=== PATIENT | female | born 1965 | race Hispanic/Latino ===

== ENCOUNTER 2017-07-11 16:52 | Inpatient (IN) | payer SELFPAY ==
[2017-07-11] MEDS ORDERED: Nitroglycerin 2% Ointment 1 INCH/1 GM Packet ONE (17:37)
[2017-07-11 17:39] LABS: #Eosinphils 0.2 thou/uL (0.0-0.7); #Monocytes 0.5 thou/uL (0.11-0.59); #Neutrophils 7.2 thou/uL (1.40-6.50); %Basophils 0.1 % (0.0-1.0); %Eosinophils 1.5 % (0.0-10.0); %Lymphocytes 27.6 % (21.0-51.0); %Monocytes 4.8 % (0.0-10.0); %Neutrophils 66.1 % (42.0-75.0); Hemoglobin 15.8 g/dL (12.0-16.0); Mean Corpuscular HGB CONC 34.2 g/dL (32.0-36.0); Mean Corpuscular Hemoglobin 29.7 pg (27.0-31.0); Platelet Count 281 thou/uL (130-400); RBC Distribution Width 12.2 % (11.5-14.5); Red Blood Cell (RBC) Count 5.31 mill/uL (4.20-5.40)
[2017-07-11 17:59] LABS: ALT (SGPT) 158 U/L (8-55); AST (SGOT) 116 U/L (5-34); Albumin 4.1 g/dL (3.5-5.0); Alkaline Phosphatase 115 U/L (40-150); Anion Gap 13 mmol/L (10-20); BUN (Urea Nitrogen) 9 mg/dL (9.8-20.1); Bilirubin, Total 0.7 mg/dL (0.2-1.2); CK (CPK) 114 U/L (29-168); Calc. Creatinine Clearance 0 mL/min (70-130); Calcium 9.7 mg/dL (7.8-10.44); Carbon Dioxide 24 mmol/L (22-29); Chloride 103 mmol/L (98-107); Estimated GFR-MDRD Greater than 90; Globulin 4.2 g/dL (2.4-3.5); Glucose 143 mg/dL (70-105); Lipase 16 U/L (8-78); Potassium 3.9 mmol/L (3.5-5.1); Protein, Total 8.3 g/dL (6.0-8.3); Sodium 136 mmol/L (136-145)
[2017-07-11 18:00] LABS: CKMB 1.1 ng/mL (0-6.6); Troponin I 0.011 ng/mL (< 0.028)
--- NOTE | 2017-07-11 18:10 | RAD ---
PORTABLE CHEST: HISTORY: Chest pain. COMPARISON: 06/15/2016 FINDINGS: Heart size and mediastinum are within normal limits. Lungs are clear of infiltrates. No significant bony findings. IMPRESSION: No active intrathoracic disease. POS: [facility]
[2017-07-11] MEDS ORDERED: Acetaminophen 325 MG TAB PO PRN (19:24)
[2017-07-11 20:55] LABS: Troponin I Less than 0.010 ng/mL (< 0.028)
[2017-07-11 21:05] LABS: Cardiac Risk 4.8 (Less than 4.5)
[2017-07-12 00:04] LABS: Troponin I 0.011 ng/mL (< 0.028)
[2017-07-12] MEDS ORDERED: Lisinopril 20 MG TAB PO SCH (09:00)
--- NOTE | 2017-07-12 11:40 | NM ---
NUCLEAR MEDICINE CARDIAC PERFUSION EXAMINATION WITH EJECTION FRACTION: COMPARISON: 03/14/14. HISTORY: A 52-year-old female with chest pain, hypertension, and dyslipidemia. TECHNIQUE: A stress-only nuclear medicine cardiac perfusion examination was performed using 33 mCi of Technetium 99m sestamibi and adenosine FINDINGS: Tomographic images show no perfusion defects with stress. Gated images show normal wall motion with an ejection fraction of 65%. EDV is 98 mL. LHR is 0.3. IMPRESSION: No perfusion defects seen with stress. POS: [facility]
[2017-07-12] MEDS ORDERED: cloNIDine 0.1 MG TAB PO SCH (13:00)
--- NOTE | 2017-07-12 13:51 | STRESS ---
Acquisition Time: 2017-07-12 08:28:30 Total Exercise Time: 00:04:00 Test Indications: CHEST PAIN Medications: Protocol: ADENOSINE Max HR: 112 BPM 66% of Pred: 168 BPM Max BP: 180/064 mmHG Max Work Load: 1.0 METS THE PATIENT WAS INJECTED WITH ADENOSINE. SHE DID DEVELOP CHEST PAIN. THERE WAS NO SIGNIFICANT ST DEPRESSION. AWAIT NUCLEAR IMAGES FOR DEFINITIVE DIAGNOSIS. Confirmed by TANIA CURRY ([id number]), editor school photograph [employer] EATON ([id number]) on 07/12/2017 1:51:30 PM Referred By: MD Neelam WATERS Confirmed By:TANIA CURRY
[2017-07-12] MEDS ORDERED: Communication Order-Pharmacy FS SCH (14:45)
[2017-07-12] MEDS ORDERED: ADENOSINE 60 MG/20 ML VIAL ONE (15:04)
[2017-07-12 16:09] LABS: HBCM Index 0.15 S/CO (0-0.79); HBSAg Index 0.26 S/CO (0-0.99); Hep A IgM AB Non-Reactive (NonReactive); Hep A IgM S/CO 0.15 S/CO (0-0.79); Hep B Surf Ag Non-Reactive S/CO (NonReactive); Hep C IgG Ab Non-Reactive (NonReactive); Hep C Index 0.13 S/CO (0-0.79); Hepatitis B Core IGM Abs Non-Reactive (NonReactive)
--- NOTE | 2017-07-12 17:06 | HP ---
DATE OF ADMISSION: 07/11/2017 CHIEF COMPLAINT: Chest pain. HISTORY OF PRESENT ILLNESS: Ms. Madera is a 52-year-old female with past medical history of diabetes and hypertension, who came with chest pain on and off for the last few days, but worse today . The pain is in the distal sternal area, pressure-like, radiates to the left shoulder. Also, has s hortness of breath and diaphoresis. The patient decided to come to the hospital because it was getti ng worse. In the ER, the patient was evaluated and found to have normal cardiac enzymes. In view of risk factors, the patient is being admitted for further evaluation and management. The patient rece ived aspirin and nitro. PAST MEDICAL HISTORY: 1. Diabetes mellitus. 2. Hypertension. 3. Hyperlipidemia. PAST SURGICAL HISTORY: 1. Status post hysterectomy. 2. Status post . CURRENT MEDICATIONS: Patient is on lisinopril 20 mg daily, glipizide 10 mg b.i.d., metformin 500 mg b.i.d. ALLERGIES: BACTRIM, PNEUMONIA VACCINE. FAMILY HISTORY: Nothing of interest. SOCIAL HISTORY: Patient lives with family. No history of smoking. Drinks alcohol. REVIEW OF SYSTEMS: Unremarkable except for chest pain. PHYSICAL EXAMINATION: GENERAL: The patient is alert, awake, oriented x3. VITAL SIGNS: Temperature 98, pulse 100, respirations 20, blood pressure 120/60. HEENT: Head is normocephalic, atraumatic. Pupils equal and reactive to light. Nasopharynx is pink and moist. NECK: Supple. No JVD. LUNGS: Bilateral air entry, no rales, no rhonchi. CARDIAC: S1 and S2, regular. ABDOMEN: Soft, no distention, no tenderness. No abnormal bowel sounds. CENTRAL NERVOUS SYSTEM: No focal deficit. LABORATORY AND X-RAY FINDINGS: CBC shows WBC 11, hemoglobin 15, hematocrit 46, platelets 281. D-dim er 0.274. Metabolic panel: Sodium 136, potassium 3.9, chloride 103, CO2 of 24, urea nitrogen 9, cre atinine 0.6, glucose 143. CK-MB 1.1, troponin 0.011. Chest x-ray negative. EKG shows normal sinus rhythm, no acute ST-T-wave changes seen. ASSESSMENT: 1. Chest pain, rule out myocardial infarction. 2. Diabetes mellitus. 3. Hypertension. 4. Hyperlipidemia. PLAN: 1. Vital signs q.4 hours with activities. 2. Allergic to sulfa and a pneumonia vaccine. 3. Hep-Lock. 4. Aspirin 81 mg daily. 5. Nitroglycerine p.r.n. 6. Continue home medication. 7. Accu-Chek a.c. and at bedtime. 8. Sliding scale mild with regular insulin. 9. We will obtain a stress test. 10. We would hold metformin.
[2017-07-12] MEDS: Lisinopril 20 MG TAB PO SCH (21:38)
--- NOTE | 2017-07-12 23:44 | CON ---
DATE OF CONSULT: HISTORY OF PRESENT ILLNESS: The patient is a 52-year-old woman who presents for evaluation of chest discomfort. The patient states for the past month she has had midsternal chest discomfort. This occurred primarily with exertion. It usually last approximately 5 minutes and relieved by rest. The patient, however, also report having chest discomfort when she lies down at night, which is relieved by sitting up. She was given Prilosec by her primary physician, but has continued to have discomfort. The patient has multiple cardiac risk factors including hypertension, dyslipidemia, diabetes mellitus, and a very strong family history of coronary artery disease. PAST MEDICAL HISTORY: 1. Hypertension. 2. Diabetes mellitus. PAST SURGICAL HISTORY: Hysterectomy. ALLERGIES: BACTRIM. PNEUMOVAX, SULFA. SOCIAL HISTORY: Nonsmoker. REVIEW OF SYSTEMS: The 10 point system otherwise unremarkable. No history of easy bruising, bleeding, bright red blood per rectum. PHYSICAL EXAMINATION: GENERAL: Obese woman in no acute distress. VITAL SIGNS: Blood pressure is 177/77. NECK: Showed no jugular venous distention, no carotid bruits. LUNGS: Clear to auscultation. HEART: Regular rate and rhythm, normal S1, S2. ABDOMEN: Distended. EXTREMITIES: No edema. SKIN: Warm and dry. VASCULAR: Radial pulses are 2+. Femoral pulses are palpable bilateral. LABORATORY: Sodium 136, potassium 3.9, chloride 103, bicarbonate 24, BUN 9, creatinine 0.67, glucose 143, ALT is 116. Troponin less than 0.01. Her white blood cell count is 11.0, hemoglobin 15.8, hematocrit 46.2, platelets 281. EKG sinus tachycardia, otherwise normal ECG. Stress test revealed normal left ventricular ejection fraction 65%, no evidence of ischemia. IMPRESSION: 1. Chest pain, suggestive of angina. 2. Diabetes. 3. Hypertension. 4. Obesity. 5. Elevated liver function tests. 6. Cardiolite stress test. This patient presents with recurrent chest discomfort. She has continued to have chest pain and has multiple risk factors. I discussed the option of medical therapy versus invasive evaluation to define whether she has significant coronary artery disease. The patient highly prefers to have an invasive evaluation. Risks involved in cardiac catheterization including AL, bleeding, stroke, cardiac arrhythmia, and cardiac . The risks involving stent placement and restenosis have been explained to patient. The patient understands these risks and wishes to proceed. PLAN: 1. Proceed with cardiac catheterization. 2. Evaluation for elevated liver function tests. MTDD
[2017-07-13 05:45] LABS: ALT (SGPT) 166 U/L (8-55); AST (SGOT) 129 U/L (5-34); Albumin 3.9 g/dL (3.5-5.0); Alkaline Phosphatase 114 U/L (40-150); Anion Gap 13 mmol/L (10-20); BUN (Urea Nitrogen) 8 mg/dL (9.8-20.1); Bilirubin, Total 0.9 mg/dL (0.2-1.2); Calc. Creatinine Clearance 146 mL/min (70-130); Calcium 9.5 mg/dL (7.8-10.44); Carbon Dioxide 25 mmol/L (22-29); Chloride 99 mmol/L (98-107); Estimated GFR-MDRD 89; Glucose 263 mg/dL (70-105); Protein, Total 7.9 g/dL (6.0-8.3); Sodium 133 mmol/L (136-145)
[2017-07-13] MEDS: Lisinopril 20 MG TAB PO SCH ×2 (05:57→21:45)
[2017-07-13] MEDS ORDERED: Lidocaine 1% (PF) 30 ML VIAL ONE (06:59)
[2017-07-13] MEDS ORDERED: Verapamil 5 MG/2 ML VIAL ONE (07:00)
[2017-07-13] MEDS ORDERED: Heparin 10,000 UNITS/1 ML VIAL ONE ×2 (07:00)
[2017-07-13] MEDS ORDERED: Nitroglycerin 100MG/250ML BOT 250 ML ONE (07:00)
[2017-07-13] MEDS ORDERED: Midazolam HCl 2 mg/2 ml Vial ONE (07:15)
[2017-07-13] MEDS ORDERED: Fentanyl 100 MCG/2 ML VIAL ONE (07:16)
[2017-07-13] MEDS ORDERED: traMADol HCl 50 MG TAB PO PRN (07:48)
[2017-07-13] MEDS ORDERED: Acetaminophen/Codeine 30-300mg Tablet PO PRN (07:48)
[2017-07-13] MEDS ORDERED: Sodium Chloride 0.9% 200 ML IV SCH (08:00)
[2017-07-13] MEDS ORDERED: Sodium Chloride 0.9% 1,000 ML IV SCH (08:00)
--- NOTE | 2017-07-13 09:32 | ULT ---
ABDOMINAL ULTRASOUND: Date: 07/13/17 HISTORY: Elevated liver enzymes. Distended abdomen. Chest pain. COMPARISON: 07/27/07. TECHNIQUE: Utilizing a multihertz transducer, sonographic imaging of the abdomen is performed in the longitudina l and transverse plane. FINDINGS: The head of the pancreas has a normal echotexture. The remainder of the pancreas is obscured by bowel gas. Visualized IVC and aorta are unremarkable. Heterogeneous echotexture of the liver may be due to hepatic steatosis or hepatocellular disease. Sub sequent evaluation for hepatic masses and intrahepatic biliary dilatation is limited. Right hepatic l obe measures 18.3 cm. No sonographic evidence of cholelithiasis, gallbladder wall thickening, or pericholecystic fluid. Neg ative Patten's sign. Common bile duct diameter is 0.4 cm. Spleen has a normal echotexture measuring 9.7 cm. Bilaterally, no hydronephrosis. Right kidney measures 12.9 x 4.9 x 4.8 cm. Left kidney measures 11.8 x 5.3 x 4.9 cm. There is an echogenic focus in the left renal pelvis measuring 0.4 cm, which may repr esent a nonobstructing calculus. IMPRESSION: Increased echogenicity of the liver which may be due to hepatic steatosis or hepatocellular disease. Correlate clinically. If there is concern for masses, consider liver mass protocol CT. POS: [facility]
[2017-07-13] MEDS: Nitroglycerin 0.4 MG TAB (25 Tab Bottle) SL PRN ×3 (10:19→10:32)
[2017-07-13] MEDS ORDERED: Iopamidol 370 76% 100 ML VIAL ONE (12:32)
--- NOTE | 2017-07-13 16:19 | CON ---
DATE OF CONSULTATION: 07/13/2017 REASON FOR CONSULTATION: Elevation of liver enzymes. HISTORY: Mrs. Madera is a 52-year-old female who was admitted to the hospital for recurrent chest jass n retrosternally for the last month. Patient reports pain to both exertion and nonexertional. She h as had a cardiac workup including stress test and catheterization. She has demonstrable coronary [place] disease and is awaiting further evaluation with possible surgery. For the last month, she has be en taking up to 4000 mg of ibuprofen daily for this chest pain. She denies any alcohol usage. She d oes not take any Tylenol. Her risk factor for chronic liver disease includes tattoo placement in her childhood and blood transfusion at the time of hysterectomy 20 years ago. She does not have any fam cammie history of liver disease. She denies having any previous jaundice. There were no identifiable r isk factors. The patient has been at this weight plus or minus 10 pounds for the last five years, wh ich is 210 pounds. PAST MEDICAL HISTORY: 1. Diabetes. 2. Hypertension. 3. Hyperlipidemia. 4. Status post . 5. Status post hysterectomy. MEDICATIONS AT HOME: Include lisinopril 20 mg every day, glipizide 10 mg b.i.d., metformin 500 mg b. i.d. ALLERGIES: Includes BACTRIM. SOCIAL HISTORY: Patient denies any tobacco or alcohol usage. FAMILY HISTORY: Negative for any known GI problem, liver disease, GI malignancy. REVIEW OF SYSTEMS: A 10-point review of systems did not show any other pertinent positive or negativ e. PHYSICAL EXAMINATION: VITAL SIGNS: Temperature is 97.7, blood pressure 186/81, pulse of 78. GENERAL: She is alert, conversant, in no distress. HEENT: Shows normal pupils, anicteric. Oropharynx clear. CARDIOVASCULAR: Shows normal S1 and S2, regular rate and rhythm. CHEST: Shows breath sounds. ABDOMEN: Soft, very protuberant, nontender. Organomegaly cannot be assessed secondary to size. She has active bowel sounds. EXTREMITIES: Shows no edema. LABORATORY DATA AND IMAGING DATA: Electrolytes within normal range, creatinine 0.69, bilirubin 0.9, alkaline phosphatase 114, AST 129, ALT 166, TSH of 2.1, WBC is 11.0, hemoglobin 15.8, and platelet co unt of 281. Viral serology negative for acute hepatitis A. No evidence of chronic hepatitis B or C. Abdominal ultrasound showed changes consistent with fatty liver. ASSESSMENT: 1. Predominantly elevation of ALT greater than AST with normal bilirubin and alkaline phosphatase. I suspect this is mostly steatohepatitis. However, she does take up to 4000 mg ibuprofen daily for t he last month which may also have effect on her liver, although not as much as acetaminophen. Other considerations include autoimmune hepatitis and less likely primary biliary cholangitis, hemochromato sis, or alpha 1 antitrypsin deficiency or Carlos's disease. 2. Patient still has good synthetic liver function and therefore we can proceed with whatever cardia c therapy or surgery as indicated. RECOMMENDATIONS: 1. We will check JOELLE, smooth muscle antibody, F-actin antibody, mitochondrial antibody, ferritin, al pha 1 antitrypsin phenotype, and ceruloplasmin. 2. Further recommendation to follow pending above findings. 3. In the meantime, we will start patient on vitamin E 800 units daily. 4. We will follow.
[2017-07-13 17:14] LABS: ANA Symphony (Qualitative) Negative (Negative)
--- NOTE | 2017-07-13 21:50 | CON ---
DATE OF CONSULTATION: 07/13/2017 REQUESTING PHYSICIAN: Dr. Oliverio Lynn. PRIMARY CARE PHYSICIAN: Dr. Ramirez Gonsales. CHIEF COMPLAINT: Chest pain. HISTORY OF PRESENT ILLNESS: The patient is a 52-year-old diabetic, hypertensive woman with a strongl y positive family history of premature coronary artery disease. For some weeks or even months, she h as been having exertional chest pain or pressure. Initially, these episodes were not particularly se lisy and were rather brief, but they have gradually been increasing in frequency, increasing in sever ity and increasing in duration in a crescendo pattern, she presented to the hospital on the with severe enough episode that lasted long enough that she realized that she could no longer try to prete nd that it was of no significance. She ruled out for myocardial infarction by enzymes and had no obv ious perfusion defects or EKG changes on her stress test, but she did have recreation of her reproduc tion of her chest pain with injection of adenosine. These episodes of pain have been associated with radiation sometimes to her back, but very frequently to her arm which will ache or even turn numb. She had a brief episode of chest pain today and ache in her left arm is persistent for some time, marie n though the chest pain itself is resolved. Cardiac catheterization today demonstrated severe 3-vess el coronary artery disease. PAST MEDICAL HISTORY: Significant for hypertension, diabetes, and hyperlipidemia. PAST SURGICAL HISTORY: She has undergone a previous hysterectomy and previous . HOME MEDICATIONS: Lisinopril 20 mg b.i.d., metformin 1000 mg b.i.d., glimepiride 1 mg in the morning . She is currently on a baby aspirin a day, lisinopril 20 mg b.i.d., vitamin E 800 units a day. ALLERGIES: She reports allergies to SULFONAMIDE, and PNEUMOCOCCAL VACCINE. SOCIAL HISTORY: She does not smoke or drink alcohol. FAMILY HISTORY: Significant for multiple siblings who have undergone coronary artery bypass grafting or coronary stenting procedures including 3 brothers, two of whom are twins and a sister. She repor ts that both of her parents have coronary disease and aunts and uncles also had coronary disease typi moisés manifesting in their 50s. REVIEW OF SYSTEMS: Negative for any transient eyes, speech or facial symptoms to suggest TIAs. When questioned about extremity paresthesias, she had first talked about left arm and leg going numb. Fu rther questioning, the left arm symptoms are typically associated with her chest pain and start off a s pain in her arm and then progressed and numbness. The left leg symptoms, she is a little bit hard pressed to describe other than the leg actually hurting starting at her back and going into the entir e leg, although initially she said it started in her leg and went to her low back. She has no right- sided symptoms and there is no true weakness associated with any of these symptoms. The patient has had frequent "sharp periumbilical postprandial pain" followed by vomiting. She denies any right uppe r quadrant pain. PHYSICAL EXAMINATION: GENERAL: She is a moderately obese woman in no distress. VITAL SIGNS: Height is 5 feet 5 inches, weight is 215 pounds, heart rate is in the upper 70s to mid 80s. Blood pressure, mostly in the 130s to 160s over 60s-70s, but this morning she had blood pressur e of 195/90. She has no obvious xanthelasma. NECK: No JVD, no carotid bruits. LUNGS: Chest is clear to auscultation. CARDIOVASCULAR: She has a regular rate and rhythm. ABDOMEN: Soft and nontender. EXTREMITIES: She has easily palpable left radial pulse with a normal Kirby's testing. Her right wri st is bandaged status post a right radial access for her catheterization. She has easily palpable do rsalis pedis, and posterior tibial pulses bilaterally. She has no clubbing, cyanosis or edema. No o bvious varicosities. NEUROLOGIC: Grossly nonfocal. She has primarily truncal obesity. LABORATORY DATA: White count of 11.0, hemoglobin 15.8, hematocrit 46.2, platelets 281,000. Calcium was 9.7, protein 8.3, albumin 4.2, bilirubin 0.7, alkaline phosphatase 115, AST was 116 and the ALT w as 158. Followup LFTs following day showed bilirubin of 0.9, alkaline phosphatase of 114, AST was 12 9 and ALT 166. Followup chemistries this morning showed glucose of 263, BUN of 8, creatinine 0.69. Lipids the evening of presentation triglyceride of 140, cholesterol 181, LDL 115 and HDL 38. TSH was 2.1535. BNP was 22.3. Troponins were less than 0.010 and 0.011. Her stress test had reproduction of pain with injection of adenosine, but no diagnostic EKG or perfusion changes on imaging. Abdomina l ultrasonography showed a heterogeneous echotexture of the liver without any cholelithiasis, normal common bile duct. Cardiac catheterization showed right dominant system. She has a long about 50% le guillermina starting at the ostium of the LAD. There is a very high diagonal that runs in a ramus type posi tion just after a small second diagonal, there is a rather hazy lesion seen in the LAD on cranial cau dad view and the next view shows that to be in profile around 70% or 80% lesion. She has a 70% or 80 % lesion in the proximal portion of a modest size OM1 and about a 90% lesion as the circumflex termin ates in a very large OM2. There are proximal and mid 80-90% lesions in the right coronary with a mod est sized PDA. There is a subtotal lesion proximally and a posterolateral branch coming off of the r ight, but it is a rather small vessel. The LVEF was around 60% with LV pressure being 115/7 with an EDP of 8 and aortic pressure being 126/73 with a mean of 98. Her EKG was essentially normal. Her ch est x-ray showed a relatively small heart and normal aortic knob, somewhat prominent pulmonary vascul ar markings suggestive of edema. IMPRESSION AND PLAN: Three-vessel coronary disease with an unstable pattern of angina in a young costa betic woman with a strongly positive family history of premature coronary artery disease, although sh e is left hand dominant. She has undergone right radial catheterization for her cardiac catheterizat ion, I believe somewhat reluctant to use bilateral mammaries and what I suspect is at best modestly c ontrolled diabetic. Her stature is such that her radial arteries may be somewhat small, but I think given her young age that at least exploring the option of using radial artery for one of her conduits would be appropriate. I have discussed this with her and one of her sisters. We will plan on coron kevin artery bypass grafting.
[2017-07-14] MEDS ORDERED: Communication Order-Pharmacy FS SCH (06:46)
[2017-07-14 07:24] LABS: #Basophils 0.1 thou/uL (0.0-0.2); #Eosinphils 0.2 thou/uL (0.0-0.7); #Lymphocytes 2.7 thou/uL (1.20-3.40); #Monocytes 0.5 thou/uL (0.11-0.59); #Neutrophils 7.3 thou/uL (1.40-6.50); %Basophils 0.6 % (0.0-1.0); %Eosinophils 1.7 % (0.0-10.0); %Lymphocytes 25.3 % (21.0-51.0); %Neutrophils 67.4 % (42.0-75.0); Hemoglobin 16.5 g/dL (12.0-16.0); Mean Corpuscular HGB CONC 33.8 g/dL (32.0-36.0); Mean Corpuscular Hemoglobin 29.8 pg (27.0-31.0); Mean Platelet Volume 8.4 fL (7.4-10.4); Platelet Count 273 thou/uL (130-400); RBC Distribution Width 12.5 % (11.5-14.5); Red Blood Cell (RBC) Count 5.53 mill/uL (4.20-5.40); White Blood Cell (WBC) Count 10.8 thou/uL (4.8-10.8)
[2017-07-14 07:26] LABS: Hemoglobin A1c 10.4 % (4.0-6.0)
[2017-07-14 07:40] LABS: Anion Gap 12 mmol/L (10-20); BUN (Urea Nitrogen) 8 mg/dL (9.8-20.1); Calc. Creatinine Clearance 158 mL/min (70-130); Calcium 9.5 mg/dL (7.8-10.44); Carbon Dioxide 22 mmol/L (22-29); Chloride 103 mmol/L (98-107); Estimated GFR-MDRD Greater than 90; Glucose 223 mg/dL (70-105); Potassium 4.6 mmol/L (3.5-5.1); Sodium 132 mmol/L (136-145)
[2017-07-14 08:04] LABS: INR-International Normal Ratio 1.1; PTT 34.5 SEC (22.9-36.1); Prothrombin Time 14.2 SEC (12.0-14.7)
[2017-07-14] MEDS: Lisinopril 20 MG TAB PO SCH ×2 (08:42→21:43)
[2017-07-14] MEDS ORDERED: Vitami E (Dl,Tocopheryl Acet) 400 UNITS CAP PO SCH (09:00)
[2017-07-14] MEDS ORDERED: ALPRAZolam 0.25 MG TAB PO SCH (09:15)
[2017-07-14] MEDS ORDERED: Dextrose 5% in Water 1,000 ML IV PRN (10:50)
[2017-07-14] MEDS ORDERED: Insulin Regular 300 UNITS/3 ML VIAL SC PRN ×2 (10:50)
[2017-07-14] MEDS ORDERED: Dextrose 50% Abboject 50 ML SYRINGE IVP PRN (10:50)
--- NOTE | 2017-07-14 15:18 | PRG ---
DATE OF SERVICE: 07/14/2017 SUBJECTIVE: The patient is without complaint. She denies having any pain. She is tolerating diet w ithout nausea, vomiting. PHYSICAL EXAMINATION: VITAL SIGNS: Temperature is 98.0, blood pressure 120/58, pulse of 84. GENERAL: She is alert, in no distress. HEENT: Shows anicteric sclerae. CARDIOVASCULAR: Shows normal S1, S2 regular rate and rhythm. CHEST: Shows breath sounds. ABDOMEN: Protuberant, nontender. Organomegaly and mass are difficult to assess secondary to size. LABORATORY DATA: WBC is 10.8, hemoglobin 16.5, platelet count of 273. Electrolytes within normal ra nge, creatinine 0.64, hemoglobin A1c 10.4%, ferritin 356, AST 129, ALT 166. JOELLE negative. IMAGING: Abdominal ultrasound showed changes consistent with fatty liver. ASSESSMENT: 1. Transaminitis with ALT greater than AST with normal bilirubin and alkaline phosphatase. Her clin ical picture is consistent with steatohepatitis. Ruling out other concurrent liver disease. Thus fa r, JOELLE and viral hepatitis panel are negative. 2. Coronary artery disease, awaiting bypass surgery in a.m. 3. Hypertension. 4. Diabetes. 5. Obesity. RECOMMENDATIONS: 1. Stable from GI standpoint. Hepatic synthetic function appears to be intact. 2. No new recommendations, we will await results of other pending labs. I will follow up with the p atient after the weekend. Dr. Bridges is to cover for GI, please call if needed.
[2017-07-15] MEDS: Lisinopril 20 MG TAB PO SCH (03:48)
[2017-07-15] MEDS ORDERED: Albumin 5% 500 ML ONE ×2 (06:33→07:21)
[2017-07-15] MEDS ORDERED: Heparin 10,000 UNITS/1 ML VIAL 30,000 UNITS in Sodium Chloride 0.9% 1,000 ML FS SCH (06:45)
[2017-07-15] MEDS ORDERED: Papaverine 60 MG/2 ML VIAL ONE ×2 (07:05→10:12)
[2017-07-15] MEDS ORDERED: Acetaminophen 325 MG TAB PO PRN (07:09)
[2017-07-15] MEDS ORDERED: Bisacodyl 10 MG SUPP PR PRN (07:09)
[2017-07-15] MEDS ORDERED: Bisacodyl 5 MG TAB PO PRN (07:09)
[2017-07-15] MEDS ORDERED: Potassium Chloride 20 MEQ/100 ML PREMIX BAG IVPB PRN (07:09)
[2017-07-15] MEDS ORDERED: Promethazine HCl 25 MG/ML VIAL IM PRN (07:09)
[2017-07-15] MEDS ORDERED: Norepinephrine 8 MG/0.9% NS 250 ML IVPB PRN (07:09)
[2017-07-15] MEDS ORDERED: Ondansetron HCl/PF 4 MG/2 ML Vial IVP PRN (07:09)
[2017-07-15] MEDS ORDERED: hydrALAZINE 20 MG/ML VIAL SLOW IVP PRN (07:09)
[2017-07-15] MEDS ORDERED: Hetastarch 6% 500 ML 500 ML IVPB PRN (07:09)
[2017-07-15] MEDS ORDERED: Mag-Al 1200 mg/1200 mg/30 ML UDCUP PO PRN (07:09)
[2017-07-15] MEDS ORDERED: Guaifenesin DM 100-10/5 ML UDCUP PO PRN (07:09)
[2017-07-15] MEDS ORDERED: Nitroglycerin 50 MG/250 ML BOT 250 ML IVPB PRN (07:09)
[2017-07-15] MEDS ORDERED: Post-Op Insulin Drip Protocol IVPB ONE (07:09)
[2017-07-15] MEDS ORDERED: CEFAZOLIN/Water 2 GM/20 ML SYRINGE ONE (07:16)
[2017-07-15] MEDS ORDERED: Midazolam HCl 2 mg/2 ml Vial ONE (07:19)
[2017-07-15] MEDS ORDERED: Fentanyl 250 MCG/5 ML VIAL ONE ×2 (07:20→11:52)
[2017-07-15] MEDS ORDERED: Midazolam HCl 5 mg/5 ml Vial ONE (07:20)
[2017-07-15] MEDS ORDERED: Dexmedetomidine 200 MCG/2 ML VIAL ONE (07:21)
[2017-07-15] MEDS ORDERED: Norepinephrine 8 MG/0.9% NS 250 ML ONE (07:21)
[2017-07-15] MEDS ORDERED: HYDROmorphone 0.5 MG/0.5 ML SYRINGE ONE (07:21)
[2017-07-15] MEDS ORDERED: Nitroglycerin 50 MG/250 ML BOT 250 ML ONE (07:21)
[2017-07-15] MEDS ORDERED: Rocuronium Bromide 50 MG/5 ML VIAL ONE ×2 (07:28→14:36)
[2017-07-15] MEDS ORDERED: Dextrose 5% in Water 1,000 ML IV PRN (07:35)
[2017-07-15] MEDS ORDERED: Dextrose 50% Abboject 50 ML SYRINGE SLOW IVP PRN (07:35)
[2017-07-15] MEDS ORDERED: Phenylephrine HCL 10 MG/ML VIAL ONE ×2 (08:00→11:53)
[2017-07-15] MEDS ORDERED: Insulin Regular 300 UNITS/3 ML VIAL ONE (08:27)
[2017-07-15] MEDS ORDERED: PHENYLEPHRINE-NS 100 MCG/ML 10 ML SYRINGE ONE (10:12)
[2017-07-15] MEDS ORDERED: Protamine Sulfate 250 MG/25 ML VIAL ONE (10:12)
[2017-07-15] MEDS ORDERED: Dexamethasone 20 MG/5 ML VIAL ONE (10:12)
[2017-07-15] MEDS ORDERED: Nitroglycerin 50 MG/250 ML BOT ONE (10:12)
[2017-07-15] MEDS ORDERED: Sterile Water 10 ML VIAL ONE (10:12)
[2017-07-15] MEDS ORDERED: ePHEDrine/0.9% NaCl/PF SYRINGE 50 mg/10 ml ONE (10:12)
[2017-07-15] MEDS ORDERED: Aminocaproic Acid 5 GM/20 ML VIAL ONE (10:12)
[2017-07-15] MEDS ORDERED: PROPOFOL 200 MG/20 ML VIAL ONE (10:12)
[2017-07-15] MEDS ORDERED: Heparin 30,000 units/30 ml VIAL ONE (10:12)
[2017-07-15] MEDS ORDERED: Heparin 5,000 UNITS/ML VIAL ONE (10:12)
[2017-07-15] MEDS ORDERED: CEFAZOLIN 1 GM VIAL ONE ×2 (10:12→11:52)
[2017-07-15] MEDS ORDERED: Glycopyrrolate 0.2 MG/ML 5 ML SYRINGE ONE (10:12)
[2017-07-15] MEDS ORDERED: Cardioplegic Soln 1,000 ML BAG ONE (10:12)
[2017-07-15] MEDS ORDERED: Sodium Bicarb 50 MEQ/50 ML Abboject 8.4% SYRINGE ONE (10:12)
[2017-07-15] MEDS ORDERED: Lidocaine 1% PF 5 ML VIAL ONE (10:12)
[2017-07-15] MEDS ORDERED: Promethazine HCl 25 MG/ML VIAL ONE (11:53)
[2017-07-15] MEDS: Famotidine/PF 20 mg/2ml Vial SLOW IVP SCH ×2 (15:12→21:18)
[2017-07-15 16:06] LABS: ANA Symphony (Qualitative) Negative (Negative); EliA Vaculitis New Method **** NEW METHOD ****; Mitochondrial Ab 0.8 U/mL (<4 Negative); dsDNA IgG Antibody Less than 0.5 IU/mL (<10 Negative)
[2017-07-15 17:07] LABS: Actual Bicarbonate (HCO3a) 22.6 mEq/L (22-26); Base Excess (BEa) -2.1 mEq/L (0 (+/-) 2.5); CO2 Tension 38.4 mmHg (35.0-45.0); Calcium, Ionized 1.1 mmol/L (1.12-1.30); Hemoglobin (Hb) 10.7 g/dL (12.0-16.0); pH, Arterial 7.39 (7.35-7.45)
[2017-07-15 17:08] LABS: Puncture Site A-LINE
[2017-07-15] MEDS: Sodium Chloride 0.9% 1,000 ML IV SCH (17:19)
[2017-07-15 17:20] LABS: Hemoglobin 10.9 g/dL (12.0-16.0); Mean Corpuscular Hemoglobin 29.9 pg (27.0-31.0); Mean Corpuscular Volume 88.2 fl (81.0-99.0); Mean Platelet Volume 7.9 fL (7.4-10.4); Platelet Count 197 thou/uL (130-400); RBC Distribution Width 12.3 % (11.5-14.5); Red Blood Cell (RBC) Count 3.63 mill/uL (4.20-5.40)
[2017-07-15 17:23] LABS: INR-International Normal Ratio 1.6
[2017-07-15 17:40] LABS: Anion Gap 4 mmol/L (10-20); BUN (Urea Nitrogen) 7 mg/dL (9.8-20.1); Calc. Creatinine Clearance 195 mL/min (70-130); Calcium 6.9 mg/dL (7.8-10.44); Carbon Dioxide 23 mmol/L (22-29); Chloride 116 mmol/L (98-107); Estimated GFR-MDRD Greater than 90; Glucose 186 mg/dL (70-105); Potassium 4.3 mmol/L (3.5-5.1); Sodium 139 mmol/L (136-145)
[2017-07-15 17:44] LABS: Band 14 % (5-11); Lymphocytes 1 % (21-51); MDiff Complete? YES; Monocytes 3 % (0-10); Neutrophil 82 % (42-75); PLT Morphology Comment Appears Adequate; Poikilocytosis SLIGHT = 6-15 cells (100X) (0-5/hpf)
--- NOTE | 2017-07-15 17:44 | OP ---
DATE OF PROCEDURE: 07/15/2017 PROCEDURES PERFORMED: Left subclavian central line placement, coronary artery bypass grafting x5 wit h left internal mammary artery to the LAD and reverse greater saphenous vein graft from the aorta to the RCA/PDA and from the aorta to the first diagonal and sequential left radial artery graft from the aorta (kauffman of the diagonal vein graft proximal anastomosis) to the first obtuse marginal to the sec ond obtuse marginal. PREOPERATIVE DIAGNOSIS: Coronary artery disease with unstable angina. POSTOPERATIVE DIAGNOSIS: Coronary artery disease with unstable angina. SURGEON: Alexandro Fisher M.D. ANESTHESIA: General endotracheal anesthesia. INDICATIONS: The patient is a 52-year-old diabetic woman with a strongly positive family history of premature coronary artery disease. She presented with crescendo pattern of angina, ruled out from my ocardial infarction, but had angina in the hospital on medical management. She had reproduction of p ain with injection of adenosine, although nuclear stress test images were essentially normal. Cardia c catheterization demonstrated severe 3-vessel coronary disease in a right dominant system. She is n ow taken to the operating room for surgical revascularization. FINDINGS: Good quality DARRON. The left radial artery was slightly small. The utilized saphenous vein was of good quality, but was rather small in the distal thigh and upper calf. The LAD was about 1.5 -2 mm vessel. The diagonal likewise about 1.5-2 mm. The first obtuse marginal was about 1.5 mm. Th e second obtuse marginal about 2 mm. The RCA proper had some plaquing and it was about a 2.5 to 3 mm vessel leading to about a 1.5 mm PDA. The pericardium was closed. NARRATIVE REPORT: After informed consent was obtained, the patient was taken to the operating room a nd placed in supine position on the operating table. After the induction of general anesthesia, she was placed in Trendelenburg and her left upper chest was prepped and draped in sterile fashion. A tr iple-lumen central line kit was used to place a left subclavian central line by the [employer]. All three ports easily aspirated and flushed. The line was secured with a suture. The patient' s torso, groins, lower extremities and left upper extremity were prepped and draped in sterile fashio n. A longitudinal incision was made over the palpable left radial pulse at the wrist. The radial ar marilynn was exposed and isolated. It was slightly small, but appeared to be of adequate size and qualit y. Doppler examination of the hand with test occlusion of the radial artery showed maintenance of Do ppler pulses in the palmar arch and digital vessels of each of the 5 distal phalanges. By skin bridg e technique, the radial artery was then harvested as a skeletonized vessel from the wrist to its orig in from the brachial artery controlling side branches with Hemoclips. The radial artery was cannulat ed distally and distended with papaverine solution to relieve spasm and to assess for adequacy of con trol of side branches. The harvest sites were closed in layers, subcutaneous and subcuticular Vicryl . The saphenous vein was identified at the knee, it was a rather small vessel there, but when follow ed up proximally, it got bigger. It was harvested endoscopically up to the groin. Preoperative ultr asonic imaging suggested that the vein Dove below the knee had got bigger, but when followed, it was also rather small. The harvested vein was prepared for use as graft and the harvest sites were close d in layers of subcutaneous and subcuticular Vicryl. Median sternotomy was performed and the left IM A was mobilized as a pedicle from the level of xiphoid to the level of subclavian vein. An attempt w as made to harvest it through an extrapleural exposure, but the pleura was extremely thin and this di d not prove feasible. The patient was heparinized. The mammary was ligated and divided distally. T here was excellent flow through the mammary which was instilled intraluminally with papaverine soluti on. The mammary bed was inspected for hemostasis. The DARRON retractor was placed with an Ankeney and pericardium was opened and marsupialized. The aorta was palpated and was soft. A double concentric pursestring of 2-0 Ethibond was placed in the ascending aorta just beyond the pericardial reflection and a single pursestring was placed in the right atrial appendage. Aortic and venous cannulae were i nserted and secured by their pursestrings. Cardiopulmonary bypass was instituted. The patient was s ystemically cooled. The heart was examined. The vessels to be bypassed were identified and distance s were measured to plan distribution of the grafts. It was opted to use saphenous vein for the dista l right and the first diagonal and sequence of the radial artery to the obtuse marginals and the aort ic crossclamp was applied and cardioplegia was administered through an aortic root needle. When arre st has been achieved, attention was turned to the distal right coronary. It was exposed and opened a t the crux with the arteriotomy extended down about 2 mm onto the PDA. Reverse greater saphenous vei n was anastomosed their end-to-side with running Prolene suture and the anastomosis tested by flushin g cold cardioplegia down the graft to conserve length of vein, it was brought up along the AV groove. Cardioplegia was administered to distend the aorta and an aortotomy was made on the ascending aorta with a scalpel and punch and right coronary system graft was anastomosed there end-to-side. Attenti on was then turned to the circumflex system. Points on the OM1 and OM2 near where they emerge from t he AV groove were selected. The OM2 was opened and the radial artery was anastomosed there end-to-si de with running 7-0 Prolene suture orienting the anastomosis perpendicular to the axis of the coronar y. [id number] anastomosis was made from the radial artery to the OM1 in a similar fashion. The fi rst diagonal was opened and saphenous vein was anastomosed to it. The LAD was then opened. The mamm kevin was brought through a longitudinal split and pericardium anterior to the left phrenic nerve and a nastomosed to the LAD with running Prolene. The pedicle was tacked to the epicardium. The aortic cr ossclamp was placed in the partial occluding clamp and an aortotomy was made in the ascending aorta w ith a scalpel and punch incorporating the root needle site. The diagonal graft was trimmed to length and anastomosed their end-to-side. A longitudinal venotomy was made in the kauffman of the diagonal gra ft and the radial artery graft was trimmed to length and generously spatulated. She was then anastom osed to the kauffman of the diagonal proximal anastomosis with running 7-0 Prolene. The root was flushed with cardioplegia. The radial artery graft back bled and the suture lines secured. The partial occ luding clamp was removed and the vein grafts were deaired. The bulldogs were removed from those matias ts. The anastomoses were inspected for hemostasis. The proximal anastomoses were marked with small Hemoclips posterior pericardial and left pleural drains brought out through separate incisions and se cured with suture. Right atrial and right ventricular temporary epicardial pacing wires were placed. The patient was then easily from cardiopulmonary bypass. Aortic and venous cannulae were removed and the pursestring secured. Protamine was administered when hemostasis was adequate. An a nterior mediastinal drain was placed and the pericardium was easily closed over with running Vicryl. The sternum was reapproximated with #7 stainless steel wires. Fascia was closed over the wires of V icryl. Subcutaneous tissue was irrigated and reapproximated and the skin was closed with Vicryl subc uticular stitch. The wounds were dressed and the patient taken to the Intensive Care Unit in stable condition.
[2017-07-15] MEDS: Ketorolac Tromethamine 30 MG/ML VIAL IVP SCH ×3 (17:45→23:58)
--- NOTE | 2017-07-15 17:55 | RAD ---
PORTABLE AP CHEST X-RAY 07/15/17 HISTORY: Post open heart surgery. COMPARISON: 07/11/17. FINDINGS: There have been interval postsurgical changes related to CABG. Endotracheal tube is noted in place wi th tip overlying T3 vertebral body. Left subclavian central venous catheter is noted in place with ti p overlying the cavoatrial junction. Mediastinal drains and left sided thoracostomy tube are present. There is accentuation of the cardiac silhouette and mediastinal structures due to shallow depth of in spiration by portable technique, but the mediastinal structures are mildly prominent, some of which c ould be again related to the shallow depth of inspiration as well as recent postsurgical changes. Ate lectasis is present at the left lung base. There is no pneumothorax or definite pleural effusion iden tified. No other interval change. IMPRESSION: 1. Postsurgical changes related to CABG with lines and tubes in place as described above. 2. Prominence of the superior mediastinum which may be accentuated secondary to recent postsurgi nii changes as well as the portable technique of the exam and shallow depth of inspiration. Followup evaluation is suggested. POS: HIMANSHU
[2017-07-15 20:47] LABS: Actual Bicarbonate (HCO3a) 20.1 mEq/L (22-26); Base Excess (BEa) -4.2 mEq/L (0 (+/-) 2.5); Calcium, Ionized 1.1 mmol/L (1.12-1.30); Hematocrit-ABG 30.5 % (36.0-47.0); Hemoglobin (Hb) 10.2 g/dL (12.0-16.0); O2 Tension (PaO2) 125.1 mmHg (80.0-100.0); Puncture Site LINE; pH, Arterial 7.39 (7.35-7.45)
[2017-07-15] MEDS: Fentanyl 100 MCG/2 ML VIAL SLOW IVP PRN ×2 (20:54→22:59)
[2017-07-15 23:34] LABS: Hemoglobin 10.3 g/dL (12.0-16.0)
[2017-07-15 23:35] LABS: Anion Gap 10 mmol/L (10-20); BUN (Urea Nitrogen) 9 mg/dL (9.8-20.1); Calc. Creatinine Clearance 181 mL/min (70-130); Calcium 7.7 mg/dL (7.8-10.44); Carbon Dioxide 23 mmol/L (22-29); Chloride 114 mmol/L (98-107); Estimated GFR-MDRD Greater than 90; Glucose 195 mg/dL (70-105); Potassium 3.6 mmol/L (3.5-5.1); Sodium 143 mmol/L (136-145)
[2017-07-16] MEDS: HYDROcodone/Acetaminophen 5/325 mg Tablet PO PRN ×5 (01:02→20:10)
[2017-07-16] MEDS: Fentanyl 100 MCG/2 ML VIAL SLOW IVP PRN ×3 (03:00→09:30)
[2017-07-16] MEDS: Sodium Chloride 0.9% 1,000 ML IV SCH ×2 (05:20→08:52)
[2017-07-16 05:32] LABS: Anion Gap 7 mmol/L (10-20); BUN (Urea Nitrogen) 9 mg/dL (9.8-20.1); Calc. Creatinine Clearance 177 mL/min (70-130); Calcium 7.6 mg/dL (7.8-10.44); Carbon Dioxide 25 mmol/L (22-29); Chloride 114 mmol/L (98-107); Estimated GFR-MDRD Greater than 90; Glucose 164 mg/dL (70-105); Potassium 4.2 mmol/L (3.5-5.1); Sodium 142 mmol/L (136-145)
[2017-07-16 05:55] LABS: #Lymphocytes 1.9 thou/uL (1.20-3.40); #Monocytes 1.7 thou/uL (0.11-0.59); #Neutrophils 12.4 thou/uL (1.40-6.50); %Eosinophils 0.1 % (0.0-10.0); %Lymphocytes 12.1 % (21.0-51.0); %Monocytes 10.5 % (0.0-10.0); %Neutrophils 77.3 % (42.0-75.0); Band 22 % (5-11); Hemoglobin 8.4 g/dL (12.0-16.0); Lymphocytes 15 % (21-51); MDiff Complete? YES; Mean Corpuscular HGB CONC 33.8 g/dL (32.0-36.0); Mean Corpuscular Hemoglobin 30.1 pg (27.0-31.0); Mean Corpuscular Volume 89.2 fl (81.0-99.0); Mean Platelet Volume 8.2 fL (7.4-10.4); Monocytes 9 % (0-10); Neutrophil 54 % (42-75); Platelet Count 164 thou/uL (130-400); RBC Distribution Width 12.5 % (11.5-14.5); Red Blood Cell (RBC) Count 2.78 mill/uL (4.20-5.40)
[2017-07-16] MEDS: Ketorolac Tromethamine 30 MG/ML VIAL IVP SCH ×3 (06:39→18:15)
[2017-07-16] MEDS: Famotidine 20 MG TAB PO SCH ×2 (08:50→20:11)
--- NOTE | 2017-07-16 09:24 | RAD ---
ONE VIEW CHEST: HISTORY: Status post open heart surgery. COMPARISON: 07/05/17. FINDINGS: Interval removal of endotracheal tube. Redemonstration of mediastinal drainage catheter, left-sided chest tube, and central venous catheter. Persistent changes in the left lung base. IMPRESSION: Findings compatible with recent open heart surgery. POS: HIMANSHU
[2017-07-16] MEDS ORDERED: Furosemide 40 MG/4 ML VIAL SLOW IVP SCH (10:30)
[2017-07-16] MEDS ORDERED: Metolazone 5 MG TAB PO SCH (10:30)
[2017-07-16] MEDS ORDERED: Bisacodyl 10 MG SUPP PR PRN (10:35)
[2017-07-16] MEDS ORDERED: Mineral Oil ENEMA PR PRN (10:35)
[2017-07-16] MEDS ORDERED: Guaifenesin DM 100-10/5 ML UDCUP PO PRN (10:35)
[2017-07-16] MEDS ORDERED: Mag-Al 1200 mg/1200 mg/30 ML UDCUP PO PRN (10:35)
[2017-07-16] MEDS ORDERED: Nitroglycerin 0.4 MG TAB (25 Tab Bottle) SL PRN (10:35)
[2017-07-16] MEDS ORDERED: Artificial Tear Sol 15 ML BOT EA EYE PRN (10:35)
[2017-07-16] MEDS ORDERED: Zolpidem Tartrate 5 MG TAB PO PRN (10:35)
[2017-07-16] MEDS ORDERED: Bisacodyl 5 MG TAB PO PRN (10:35)
[2017-07-16] MEDS ORDERED: diphenhydrAMINE 25 MG CAP PO PRN (10:35)
[2017-07-16] MEDS ORDERED: Insulin Glargine 30 UNITS in Syringe 0 ML SC SCH (11:15)
[2017-07-16] MEDS: Metoprolol Tartrate 25 MG TAB PO SCH (20:12)
[2017-07-16] MEDS: Insulin Regular 300 UNITS/3 ML VIAL SC PRN (21:56)
[2017-07-17] MEDS: Ketorolac Tromethamine 30 MG/ML VIAL IVP SCH ×5 (00:30→23:54)
[2017-07-17] MEDS: HYDROcodone/Acetaminophen 5/325 mg Tablet PO PRN ×2 (00:31→05:42)
[2017-07-17 06:01] LABS: #Lymphocytes 3.9 thou/uL (1.20-3.40); #Monocytes 1.3 thou/uL (0.11-0.59); #Neutrophils 11.2 thou/uL (1.40-6.50); %Basophils 0.2 % (0.0-1.0); %Eosinophils 0.2 % (0.0-10.0); %Lymphocytes 23.8 % (21.0-51.0); %Monocytes 8.1 % (0.0-10.0); %Neutrophils 67.7 % (42.0-75.0); Hemoglobin 7.7 g/dL (12.0-16.0); Mean Corpuscular HGB CONC 33.2 g/dL (32.0-36.0); Mean Corpuscular Hemoglobin 29.9 pg (27.0-31.0); Platelet Count 135 thou/uL (130-400); RBC Distribution Width 12.8 % (11.5-14.5); Red Blood Cell (RBC) Count 2.58 mill/uL (4.20-5.40); White Blood Cell (WBC) Count 16.5 thou/uL (4.8-10.8)
[2017-07-17 06:06] LABS: ALT (SGPT) 50 U/L (8-55); AST (SGOT) 53 U/L (5-34); Alkaline Phosphatase 44 U/L (40-150); Anion Gap 11 mmol/L (10-20); BUN (Urea Nitrogen) 16 mg/dL (9.8-20.1); Bilirubin, Total 0.7 mg/dL (0.2-1.2); Calc. Creatinine Clearance 140 mL/min (70-130); Calcium 7.9 mg/dL (7.8-10.44); Carbon Dioxide 23 mmol/L (22-29); Chloride 105 mmol/L (98-107); Estimated GFR-MDRD 81; Globulin 2.1 g/dL (2.4-3.5); Glucose 239 mg/dL (70-105); Potassium 3.8 mmol/L (3.5-5.1); Protein, Total 5.1 g/dL (6.0-8.3); Sodium 135 mmol/L (136-145)
[2017-07-17] MEDS: Famotidine 20 MG TAB PO SCH ×2 (08:25→21:26)
[2017-07-17] MEDS: Aspirin 325 mg Enteric Coated Tablet PO SCH (08:25)
[2017-07-17] MEDS: Metoprolol Tartrate 25 MG TAB PO SCH (08:25)
[2017-07-17] MEDS: Insulin Regular 300 UNITS/3 ML VIAL SC PRN ×4 (09:57→21:27)
--- NOTE | 2017-07-17 11:33 | RAD ---
ONE VIEW CHEST: COMPARISON: 07/16/17. History Status post open heart surgery. FINDINGS: Stable postoperative changes. No pneumothorax. IMPRESSION: No significant change. POS: HIMANSHU
[2017-07-17] MEDS ORDERED: Furosemide 40 MG TAB PO SCH ×2 (13:00→14:00)
--- NOTE | 2017-07-17 15:03 | PDOC.CTH ---
Cardiology Progress Note - Subjective Awake, sitting up in bed, eating lunch. Multiple family members at bedside. Has been walking in the [place] with PT, feels like she is getting stronger. Chest tubes removed this morning. Denies chest pain/discomfort, has some incision pain to midsternum, left arm radial graft site, left leg graft site. Has swelling to left arm, left leg. Denies nausea/vomiting/diarrhea. Has had some difficulty sleeping. No overnight events, no cardiac events. - Objective Vital Signs Temp Pulse Pulse Pulse Resp BP BP 07/17/17 12:42 99 98 94/44 L 97/51 L 07/17/17 11:35 98.7 F 96 18 07/17/17 08:19 98 F 91 20 07/17/17 04:00 98.5 F 96 18 BP Pulse Ox Pulse Ox Pulse Ox 07/17/17 12:42 98 100 07/17/17 11:35 92/53 L 95 07/17/17 08:19 99/52 L 97 07/17/17 04:00 107/54 L 92 L Admit Weight 214 lb 8 oz Weight 216 lb 07/16/17 07/17/17 07/18/17 06:59 06:59 06:59 Intake Total 2246 2004 Output Total 1259 2135 300 Balance 987 -131 -300 - Physical Examination General/Neuro: alert & oriented x3, NAD Neck: no JVD present Lungs: CTA, unlabored respirations Heart: RRR Abdomen: NT/ND, other: (obese) Extremities: + edema B (2+ pitting LLE, LUE, 1+ non-pitting to RLE) Other PE findings: MS incision, left radial graft site, left LE graft site s/ erythema, drain - Telemetry Telemetry Rhythm: SR - Labs Result Diagrams: 07/17/17 05:23 07/17/17 05:23 Troponin/CKMB CK-MB (CK-2) 1.1 ng/mL (0-6.6) 07/11/17 17:29 Troponin I 0.011 ng/mL (< 0.028) 07/11/17 23:30 - Assessment/Plan 1.CAD-S/P CABG x5, chest pain free. CTs removed this am. Some edema, PO furosemide daily. 2.HTN-variable, SBPs 90s-100s, metoprolol decreased. 3.DM-stable 4.Abnormal LFTs-statin on hold currently. Followed by Dr. Bartlett.
[2017-07-17] MEDS: Iron Polysaccharides Complex 150 MG CAP PO SCH (18:00)
[2017-07-18] MEDS: Metoprolol Tartrate 25 MG TAB PO SCH ×3 (00:01→20:49)
[2017-07-18 05:29] LABS: #Eosinphils 0.1 thou/uL (0.0-0.7); #Lymphocytes 3.7 thou/uL (1.20-3.40); #Monocytes 0.7 thou/uL (0.11-0.59); #Neutrophils 7.8 thou/uL (1.40-6.50); %Basophils 0.2 % (0.0-1.0); %Eosinophils 0.4 % (0.0-10.0); %Lymphocytes 30.3 % (21.0-51.0); %Neutrophils 63.1 % (42.0-75.0); Hemoglobin 7.4 g/dL (12.0-16.0); Mean Corpuscular Hemoglobin 29.2 pg (27.0-31.0); Mean Corpuscular Volume 88.6 fl (81.0-99.0); Mean Platelet Volume 9.1 fL (7.4-10.4); Platelet Count 147 thou/uL (130-400); RBC Distribution Width 12.8 % (11.5-14.5); Red Blood Cell (RBC) Count 2.54 mill/uL (4.20-5.40); White Blood Cell (WBC) Count 12.4 thou/uL (4.8-10.8)
[2017-07-18] MEDS: Ketorolac Tromethamine 30 MG/ML VIAL IVP SCH ×2 (05:31→12:24)
[2017-07-18 05:59] LABS: Anion Gap 11 mmol/L (10-20); BUN (Urea Nitrogen) 18 mg/dL (9.8-20.1); Calc. Creatinine Clearance 153 mL/min (70-130); Calcium 8.3 mg/dL (7.8-10.44); Carbon Dioxide 24 mmol/L (22-29); Chloride 102 mmol/L (98-107); Estimated GFR-MDRD Greater than 90; Glucose 171 mg/dL (70-105); Potassium 3.4 mmol/L (3.5-5.1); Sodium 134 mmol/L (136-145)
[2017-07-18] MEDS ORDERED: Furosemide 40 MG TAB PO SCH (07:30)
[2017-07-18] MEDS: Insulin Regular 300 UNITS/3 ML VIAL SC PRN ×4 (09:09→21:30)
[2017-07-18] MEDS: Lisinopril 2.5 MG TAB PO SCH (09:10)
[2017-07-18] MEDS: Iron Polysaccharides Complex 150 MG CAP PO SCH ×2 (09:10→17:39)
[2017-07-18] MEDS: Aspirin 325 mg Enteric Coated Tablet PO SCH (09:10)
[2017-07-18] MEDS: Famotidine 20 MG TAB PO SCH ×2 (10:07→20:49)
[2017-07-18 13:42] VITALS: BMI 35.2
--- NOTE | 2017-07-18 13:59 | PRG ---
DATE OF SERVICE: 07/18/2017 SUBJECTIVE: The patient is sore from her surgery, otherwise without any complaint. She tolerated di et without nausea or vomiting. She had a bowel movement this morning. PHYSICAL EXAMINATION: VITAL SIGNS: Temperature 99.3, blood pressure 92/54, pulse of 96. GENERAL: She is alert, conversant, sitting up, in no distress. HEENT: Shows anicteric sclerae. CARDIOVASCULAR: Shows normal S1 and S2, regular rate and rhythm. CHEST: Shows normal breath sounds. ABDOMEN: Soft, protuberant, nontender, good bowel sounds. EXTREMITIES: Shows no edema. LABORATORY DATA: Her bilirubin on 07/17/2017 is 0.7, AST decreased to 53, ALT 50, alkaline phosphata se 44. JOELLE negative. Antimitochondrial antibody 0.8. Smooth muscle antibody 11, both within normal range. Hepatitis serology is negative. Ferritin is 356 and a ceruloplasmin 24.7. ASSESSMENT: 1. Steatohepatitis, decreasing AST, ALT down to the 50s range. Normal bilirubin and alkaline phosph atase. All serology for autoimmune hepatitis, hemochromatosis, and copper overload, and viral hepati tis came back normal. Elevation of liver enzymes are from steatohepatitis/fatty liver. Synthetic fu nction is preserved. 2. Coronary artery disease, postop day #3, bypass surgery. 3. Hypertension. 4. Diabetes. RECOMMENDATIONS: 1. Doing well from a GI standpoint. 2. Continue vitamin E 800 units daily. 3. Long-term treatment for fatty liver is focus on weight reduction, glycemic control, and any hyper lipidemia treatment. 4. Can start on a statin of choice. 5. We will sign off for now. I gave patient my office number to schedule followup appointment 2 mon ths after discharge from hospitalization.
[2017-07-18 14:19] LABS: Alpha-1-Antitrypsin 143 mg/dL (90-200); Alpha-1-Antitrypsin 144 mg/dL (90-200)
--- NOTE | 2017-07-18 17:39 | EKG ---
Test Reason : Blood Pressure : / mmHG Vent. Rate : 082 BPM Atrial Rate : 082 BPM P-R Int : 126 ms QRS Dur : 086 ms QT Int : 390 ms P-R-T Axes : 036 012 033 degrees QTc Int : 455 ms Normal sinus rhythm Normal ECG When compared with ECG of 11-JUL-2017 16:56, (Unconfirmed) No significant change was found Confirmed by DR. Luis A CAMARA ([id number]) on 07/18/2017 5:39:15 PM Referred By: CHUCHO Confirmed By:DR. Luis A CAMARA
[2017-07-18] MEDS ORDERED: Ondansetron ODT 4 MG TAB PO PRN (18:33)
[2017-07-19] MEDS: HYDROcodone/Acetaminophen 5/325 mg Tablet PO PRN ×3 (01:49→14:32)
[2017-07-19 06:19] LABS: Anion Gap 12 mmol/L (10-20); BUN (Urea Nitrogen) 12 mg/dL (9.8-20.1); Calc. Creatinine Clearance 171 mL/min (70-130); Calcium 8.6 mg/dL (7.8-10.44); Carbon Dioxide 26 mmol/L (22-29); Chloride 100 mmol/L (98-107); Estimated GFR-MDRD Greater than 90; Glucose 150 mg/dL (70-105); Potassium 3.2 mmol/L (3.5-5.1); Sodium 135 mmol/L (136-145)
[2017-07-19 06:23] LABS: ALT (SGPT) 34 U/L (8-55); AST (SGOT) 34 U/L (5-34); Albumin 3.1 g/dL (3.5-5.0); Alkaline Phosphatase 74 U/L (40-150); Bilirubin, Direct 0.5 mg/dL (0.1-0.3); Protein, Total 5.7 g/dL (6.0-8.3)
[2017-07-19 06:50] LABS: #Eosinphils 0.2 thou/uL (0.0-0.7); #Lymphocytes 3.6 thou/uL (1.20-3.40); #Monocytes 0.8 thou/uL (0.11-0.59); #Neutrophils 7.7 thou/uL (1.40-6.50); %Basophils 0.4 % (0.0-1.0); %Eosinophils 1.6 % (0.0-10.0); %Lymphocytes 28.8 % (21.0-51.0); %Monocytes 6.8 % (0.0-10.0); %Neutrophils 62.5 % (42.0-75.0); Hemoglobin 7.7 g/dL (12.0-16.0); Mean Corpuscular HGB CONC 34.5 g/dL (32.0-36.0); Mean Corpuscular Hemoglobin 30.2 pg (27.0-31.0); Mean Corpuscular Volume 87.7 fl (81.0-99.0); Mean Platelet Volume 9.1 fL (7.4-10.4); PLT Morphology Comment Appears Adequate; Platelet Count 206 thou/uL (130-400); RBC Distribution Width 12.5 % (11.5-14.5); Red Blood Cell (RBC) Count 2.55 mill/uL (4.20-5.40); White Blood Cell (WBC) Count 12.4 thou/uL (4.8-10.8)
[2017-07-19] MEDS ORDERED: metFORMIN 500 MG TAB PO SCH (08:00)
[2017-07-19] MEDS: Famotidine 20 MG TAB PO SCH (10:24)
[2017-07-19] MEDS: Lisinopril 2.5 MG TAB PO SCH (10:24)
[2017-07-19] MEDS: Aspirin 325 mg Enteric Coated Tablet PO SCH (10:24)
[2017-07-19] MEDS: Iron Polysaccharides Complex 150 MG CAP PO SCH (10:25)
[2017-07-19] MEDS: Potassium Chloride 20 MEQ TAB PO SCH ×2 (10:25→14:33)
[2017-07-19] MEDS: Insulin Regular 300 UNITS/3 ML VIAL SC PRN (11:20)
[2017-07-19 16:52] VITALS: BP 123/59; TEMP 99
--- NOTE | 2017-07-19 18:13 | DIS ---
DATE OF ADMISSION: 07/13/2017 DATE OF DISCHARGE: 07/19/2017 PRIMARY DIAGNOSIS: Coronary artery disease with unstable angina. SECONDARY DIAGNOSES: Hypertension, hyperlipidemia, and diabetes. PROCEDURES PERFORMED: Cardiac catheterization, 07/13/2017, coronary artery bypass grafting x5 with l eft internal mammary artery to the LAD, reverse greater saphenous vein graft from the aorta to the RC A/PDA and to the first diagonal and sequential left radial artery graft from the aorta to the first o btuse marginal to the second obtuse marginal, 07/15/2017. HISTORY OF PRESENT ILLNESS AND HOSPITAL COURSE: The patient is a 52-year-old diabetic woman with a s trongly positive family history of premature coronary disease who presented with a crescendo pattern of chest pain over the last few weeks. She ruled out for myocardial infarction and had no obvious pe rfusion defects or EKG changes on nuclear stress test, but did have reproduction of her chest pain wi th injection of adenosine. Cardiac catheterization demonstrated severe 3-vessel coronary disease wit h preserved left ventricular function. She underwent revascularization using a left mammary graft fo r her LAD, sequential radial artery graft for her circumflex system and vein grafts, for her right co ronary system and a diagonal. She had an uncomplicated postoperative course being extubated the [facility] of surgery and transferred to the telemetry amrie on postoperative day #1. She was diuresed. Beta blockade was initiated, but the dose cut back because of some mild hypotension that was not particula rly symptomatic. She also had a significant postop anemia, but was not sufficiently symptomatic to w arrant transfusion. She was started on Niferex and her hemoglobin is starting to come back up. She had some elevated transaminases initially that were felt probably to represent hepatic steatosis. St atins were initially withheld because of her abnormal LFTs that she has tolerated starting Lipitor so far. She is now being discharged home with a prescription for Vicodin as needed for pain. She will continue her home dose of metformin and lisinopril. She will have prescriptions for Lipitor 20 mg a day, and metoprolol succinate 25 mg a day, and Niferex 150 mg a day. I will plan on seeing her in t he office at around the 2 week postop sana and follow up with her tool maker apprentice, Dr. Lynn, and her primary care physician, Dr. Gonsales will be per them.
[2017-07-19] MEDS ORDERED: Atorvastatin Calcium 20 MG TAB PO SCH (21:00)
[2017-07-20 13:12] LABS: Actual Bicarbonate (HCO3a) 22.6 mEq/L (22-26); Base Excess (BEa) -2.7 mEq/L (0 (+/-) 2.5); CO2 Tension 41.4 mmHg (35.0-45.0); O2 Tension (PaO2) 273.5 mmHg (80.0-100.0); pH, Arterial 7.36 (7.35-7.45)
[2017-07-20 13:13] LABS: Analyzer IN Cardio OR; Calcium, Ionized 1.2 mmol/L (1.12-1.30); Hemoglobin (Hb) 9.1 g/dL (12.0-16.0); Puncture Site ALINE
--- NOTE | 2017-07-23 15:01 | EKG ---
Test Reason : Blood Pressure : / mmHG Vent. Rate : 102 BPM Atrial Rate : 102 BPM P-R Int : 144 ms QRS Dur : 080 ms QT Int : 352 ms P-R-T Axes : 028 -05 017 degrees QTc Int : 458 ms Sinus tachycardia Otherwise normal ECG Confirmed by JT ARBOLEDA, ELEONORA ([id number]), film editor JOSH WAN ([id number]) on 07/23/2017 3:01:21 PM Referred By: Confirmed By:ELEONORA WATERS MD
--- NOTE | 2017-07-25 13:16 | EKG ---
Test Reason : Blood Pressure : / mmHG Vent. Rate : 102 BPM Atrial Rate : 102 BPM P-R Int : 130 ms QRS Dur : 074 ms QT Int : 380 ms P-R-T Axes : 012 000 057 degrees QTc Int : 495 ms Sinus tachycardia Nonspecific ST abnormality Abnormal ECG When compared with ECG of 13-JUL-2017 10:50, (Unconfirmed) No significant change was found Confirmed by DR. Luis A CAMARA ([id number]) on 07/25/2017 1:16:22 PM Referred By: Confirmed By:DR. Luis A CAMARA
[2017-07-25 14:36] LABS: CO2 Tension 35.7 mmHg (35.0-45.0); pH, Arterial 7.38 (7.35-7.45)
[2017-07-25 14:37] LABS: Actual Bicarbonate (HCO3a) 20.9 mEq/L (22-26); Analyzer IN Cardio OR; Base Excess (BEa) -3.5 mEq/L (0 (+/-) 2.5); Calcium, Ionized 1.1 mmol/L (1.12-1.30); Hematocrit-ABG 43.3 % (36.0-47.0); Hemoglobin (Hb) 14.5 g/dL (12.0-16.0); O2 Tension (PaO2) 184.3 mmHg (80.0-100.0); Puncture Site ALINE
[2017-07-25 14:37] LABS: CO2 Tension 43.5 mmHg (35.0-45.0); pH, Arterial 7.33 (7.35-7.45)
[2017-07-25 14:38] LABS: Actual Bicarbonate (HCO3a) 22.2 mEq/L (22-26); Analyzer IN Cardio OR; Base Excess (BEa) -3.7 mEq/L (0 (+/-) 2.5); Calcium, Ionized 1.1 mmol/L (1.12-1.30); Hematocrit-ABG 42.2 % (36.0-47.0); Hemoglobin (Hb) 13.6 g/dL (12.0-16.0); O2 Tension (PaO2) 306.3 mmHg (80.0-100.0); Puncture Site ALINE
[2017-07-25 14:39] LABS: Actual Bicarbonate (HCO3a) 22.9 mEq/L (22-26); Analyzer IN Cardio OR; Base Excess (BEa) -3.1 mEq/L (0 (+/-) 2.5); CO2 Tension 45.1 mmHg (35.0-45.0); Hematocrit-ABG 27.6 % (36.0-47.0); Hemoglobin (Hb) 9.6 g/dL (12.0-16.0); Puncture Site ALINE; pH, Arterial 7.32 (7.35-7.45)
[2017-07-25 14:40] LABS: Actual Bicarbonate (HCO3v) 24 mEq/L (22-26); Analyzer IN Cardio OR; Hematocrit-VBG 27.3 % (35-47); Hemoglobin (Hb) 9.4 g/dL (11.7-16.0)
[2017-07-25 14:41] LABS: Actual Bicarbonate (HCO3a) 23.4 mEq/L (22-26); Base Excess (BEa) -2.3 mEq/L (0 (+/-) 2.5); CO2 Tension 44.6 mmHg (35.0-45.0); Hematocrit-ABG 24.1 % (36.0-47.0); Hemoglobin (Hb) 8.1 g/dL (12.0-16.0); pH, Arterial 7.34 (7.35-7.45)
[2017-07-25 14:41] LABS: Calcium, Ionized 0.98 mmol/L (1.16-1.32); Chloride (ABG LAB) 105 mmol/L (98-106); Potassium - ABG Lab 5.5 mmol/L (3.70-5.30); Sodium 138.2 mmol/L (133-146)
[2017-07-25 14:42] LABS: Analyzer IN Cardio OR; Puncture Site ALINE
[2017-07-25 14:42] LABS: CO2 Tension 47.8 mmHg (35.0-45.0); Hemoglobin (Hb) 8.6 g/dL (12.0-16.0); O2 Tension (PaO2) 342.5 mmHg (80.0-100.0); pH, Arterial 7.34 (7.35-7.45)
[2017-07-25 14:43] LABS: Analyzer IN Cardio OR; Puncture Site ALINE
[2017-07-25 14:43] LABS: Actual Bicarbonate (HCO3a) 23.1 mEq/L (22-26); Base Excess (BEa) -3.1 mEq/L (0 (+/-) 2.5); CO2 Tension 47.1 mmHg (35.0-45.0); Hematocrit-ABG 24.2 % (36.0-47.0); Hemoglobin (Hb) 8.4 g/dL (12.0-16.0); O2 Tension (PaO2) 469.4 mmHg (80.0-100.0); pH, Arterial 7.31 (7.35-7.45)
[2017-07-25 14:46] LABS: Analyzer IN Cardio OR; Puncture Site ALINE
[2017-07-25 14:47] LABS: Actual Bicarbonate (HCO3a) 22.2 mEq/L (22-26); Analyzer IN Cardio OR; Base Excess (BEa) -3.5 mEq/L (0 (+/-) 2.5); CO2 Tension 43.3 mmHg (35.0-45.0); Calcium, Ionized 1.2 mmol/L (1.12-1.30); Hematocrit-ABG 24.7 % (36.0-47.0); Hemoglobin (Hb) 8.7 g/dL (12.0-16.0); O2 Tension (PaO2) 101.2 mmHg (80.0-100.0); pH, Arterial 7.33 (7.35-7.45)
[2017-07-25 14:48] LABS: Puncture Site ALINE
[2017-07-25 14:48] LABS: Actual Bicarbonate (HCO3a) 22.8 mEq/L (22-26); Base Excess (BEa) -1.9 mEq/L (0 (+/-) 2.5); CO2 Tension 38.1 mmHg (35.0-45.0); Hemoglobin (Hb) 10.4 g/dL (12.0-16.0); O2 Tension (PaO2) 137.5 mmHg (80.0-100.0); pH, Arterial 7.39 (7.35-7.45)
[2017-07-25 14:49] LABS: Analyzer IN Cardio OR; Calcium, Ionized 1.1 mmol/L (1.12-1.30); Puncture Site ALINE
== END 2017-07-19 16:53 | disposition home or self-care (01) | DRG 234 ==
LOC: ERS 16:52 → 2SW 18:04 → OBSVTOIN 07-13 10:33 → 2NO 07-13 17:51 → CCU 07-15 07:21 → 2NO 07-16 12:08
PROVIDERS: ADMIT Internal Medicine; ATTEND Internal Medicine
PROC: B2111ZZ Fluoroscopy of Multiple Coronary Arteries using Low Osmolar Contrast (ICD-10-PCS; 2017-07-13)
PROC: 02100Z9 Bypass Coronary Artery, One Artery from Left Internal Mammary, Open Approach (ICD-10-PCS; principal; 2017-07-15)
PROC: 4A023N7 Measurement of Cardiac Sampling and Pressure, Left Heart, Percutaneous Approach (ICD-10-PCS; 2017-07-15)
PROC: 06BQ4ZZ Excision of Left Saphenous Vein, Percutaneous Endoscopic Approach (ICD-10-PCS; 2017-07-15)
PROC: 03BC0ZZ Excision of Left Radial Artery, Open Approach (ICD-10-PCS; 2017-07-15)
PROC: 02110AW Bypass Coronary Artery, Two Arteries from Aorta with Autologous Arterial Tissue, Open Approach (ICD-10-PCS; 2017-07-15)
PROC: 021109W Bypass Coronary Artery, Two Arteries from Aorta with Autologous Venous Tissue, Open Approach (ICD-10-PCS; 2017-07-15)
PROC: 5A1221Z Performance of Cardiac Output, Continuous (ICD-10-PCS; 2017-07-15)
DX: I25.110 Atherosclerotic heart disease of native coronary artery with unstable angina pectoris (principal); I10 Essential (primary) hypertension; E78.5 Hyperlipidemia, unspecified; E11.9 Type 2 diabetes mellitus without complications; Z82.49 Family history of ischemic heart disease and other diseases of the circulatory system; K75.81 Nonalcoholic steatohepatitis (NASH); R74.8 Abnormal levels of other serum enzymes; E66.9 Obesity, unspecified; Z68.35 Body mass index [BMI] 35.0-35.9, adult; R79.89 Other specified abnormal findings of blood chemistry; Z79.4 Long term (current) use of insulin; Z79.82 Long term (current) use of aspirin
CPT/HCPCS: 36415; 36416; 36430; 71045; 76700; 78452; 80048; 80053; 80061; 80074; 80076; 82103; 82104; 82390; 82553; 82728; 82805; 83036; 83516; 83690; 83880; 84443; 84484; 85025; 85379; 85610; 85730; 86038; 86225; 86850; 86900; 86901; 93005; 93010; 93017; 93458; 93798; 94002; 94150; 96360; 96361; 99152; 99153; A4216; A9500; C1769; J0153; J0690; J1100; J1170; J1642; J1644; J1815; J1885; J1940; J2001; J2250; J2370; J2405; J2440; J2550; J2704; J2720; J3010; J7050; P9016; P9045; S0017; S0028

== ENCOUNTER 2019-01-14 09:24 | Inpatient (IN) | payer SELFPAY ==
[2019-01-14] MEDS ORDERED: Ondansetron PF 4 MG/2 ML Vial ONE (09:55)
[2019-01-14] MEDS ORDERED: Morphine 4 MG/ML VIAL ONE (09:55)
[2019-01-14 10:00] LABS: #Eosinphils 0.1 thou/uL (0.0-0.7); #Lymphocytes 1.1 thou/uL (1.20-3.40); #Monocytes 0.4 thou/uL (0.11-0.59); #Neutrophils 8.4 thou/uL (1.40-6.50); %Eosinophils 0.7 % (0.0-10.0); %Monocytes 3.7 % (0.0-10.0); %Neutrophils 84.6 % (42.0-75.0); Hemoglobin 14.1 g/dL (12.0-16.0); Mean Corpuscular HGB CONC 33.3 g/dL (32.0-36.0); Mean Corpuscular Hemoglobin 28.6 pg (27.0-31.0); Mean Corpuscular Volume 86.1 fL (78.0-98.0); Mean Platelet Volume 8.5 fL (7.4-10.4); Platelet Count 217 thou/uL (130-400); RBC Distribution Width 12.1 % (11.5-14.5); Red Blood Cell (RBC) Count 4.93 mill/uL (4.20-5.40); White Blood Cell (WBC) Count 9.9 thou/uL (4.8-10.8)
[2019-01-14 10:16] LABS: ALT (SGPT) 20 U/L (8-55); AST (SGOT) 16 U/L (5-34); Albumin 3.9 g/dL (3.5-5.0); Alkaline Phosphatase 73 U/L (40-110); Anion Gap 14 mmol/L (10-20); BUN (Urea Nitrogen) 9 mg/dL (9.8-20.1); Bilirubin, Total 1.2 mg/dL (0.2-1.2); Calc. Creatinine Clearance 0 mL/min (70-130); Carbon Dioxide 24 mmol/L (22-29); Chloride 105 mmol/L (98-107); Estimated GFR-MDRD 69; Globulin 3.7 g/dL (2.4-3.5); Glucose 341 mg/dL (70-105); Potassium 4.1 mmol/L (3.5-5.1); Protein, Total 7.6 g/dL (6.0-8.3); Sodium 139 mmol/L (136-145)
[2019-01-14 10:17] LABS: Bacteria/HPF 3+ HPF (None Seen); Bilirubin Negative (Negative); Blood, Urine Trace (Negative); Clarity Clear (Clear); Glucose, Urine (Dipstick) Greater than 1000 mg/dL (Negative); Leukocyte 75 Leu/uL (Negative); Nitrite Negative (Negative); Protein, Urine (Dipstick) Negative (Neg-Trace); Squamous Epithelial 0-3 HPF (0-3); Urobilinogen Normal mg/dL (Less than 2); WBC/HPF Greater than 50 HPF (0-3)
[2019-01-14] MEDS ORDERED: cefTRIAXone\\ROCEPHIN 2 GM VIAL ONE (11:40)
[2019-01-14] MEDS ORDERED: Acetaminophen 500 MG TAB ONE (12:18)
[2019-01-14] MEDS ORDERED: Sodium Chloride 0.9% 1,000 ML IV SCH ×2 (12:59→13:07)
[2019-01-14] MEDS ORDERED: Ondansetron ODT 4 MG TAB SL PRN (12:59)
[2019-01-14] MEDS ORDERED: Acetaminophen 325 MG TAB PO PRN (12:59)
[2019-01-14] MEDS ORDERED: Ondansetron PF 4 MG/2 ML Vial IVP PRN ×2 (12:59→13:05)
[2019-01-14 13:05] LABS: Hemoglobin A1c 9.4 % (4.0-6.0)
[2019-01-14] MEDS ORDERED: Ondansetron ODT 4 MG TAB PO PRN (13:05)
[2019-01-14] MEDS ORDERED: Acetaminophen 650 MG Suppository PR PRN (13:05)
[2019-01-14 13:07] VITALS: BMI 35.6
[2019-01-14] MEDS ORDERED: Dextrose 50% Abboject 50 ML SYRINGE SLOW IVP PRN (13:08)
[2019-01-14] MEDS ORDERED: Dextrose 5% in Water 1,000 ML IV PRN (13:08)
[2019-01-14] MEDS ORDERED: HumaLOG 300 UNITS/3 ML VIAL SC PRN (13:10)
[2019-01-14] MEDS ORDERED: cloNIDine 0.1 MG TAB PO PRN (13:22)
--- NOTE | 2019-01-14 13:58 | ULT ---
ULTRASOUND RETROPERITONEUM COMPLETE: (RENAL) DATE: 01/14/2019 HISTORY: 53-year-old female with right flank pain. Rule out obstructive uropathy. FINDINGS: The right kidney measures 11.5 x 6 x 5.5 cm. The left kidney measures 12.5 x 5 x 5.5 cm. Both kidneys have normal parenchymal echogenicity. There is no hydronephrosis. No moderate sized or large renal cystic or solid renal lesion is identified. Cursory images of the urinary bladder demonstrate no gross abnormality. IMPRESSION: Normal
[2019-01-14] MEDS ORDERED: Ketorolac Tromethamine 30 MG/ML VIAL IVP SCH (14:00)
--- NOTE | 2019-01-14 14:23 | HP ---
PRIMARY CARE PHYSICIAN: [employer]/Dr. Gonsales. CHIEF COMPLAINT: Right flank pain. HISTORY OF PRESENT ILLNESS: Ms. Madera is a 53-year-old woman, who presented to the emergency department with right flank pain and dysuria, that started 1 week ago. The patient states she initially developed a burning sensation with urination and then started to experience discomfort in the right side of her back. Her symptoms have progressively worsened since then, and on Tuesday, she made an appointment to see her doctor, and was due to see her physician on Tuesday. The patient was called due to her PCP being ill and her appointment being rescheduled for this upcoming week. The patient opted to come in today due to worsening of her symptoms. She states she has been experiencing a throbbing pain, that gets as bad as an 8/10 in severity. Her symptoms had slightly eased with tusg-quz-yosselh analgesics. She states the pain at times wraps around to her side and onto the right side of her abdomen. She has not noted any hematuria. Continues to experience a burning sensation when she urinates. Denies any fevers, but has been experiencing chills. Has also been experiencing nausea. Denies any vomiting. Denies having any changes of her stools. The patient reports having occasional chest pain, that has been occurring more frequently as of recently with radiation to her left arm. She has a history of coronary artery disease and uncontrolled diabetes mellitus as well as hypertension and hyperlipidemia. In 07/2017, she presented with chest pain and underwent a catheterization that demonstrated severe 3-vessel coronary artery disease. She had a CABG x5 on 07/15/[address] Fisher with left internal mammary artery to the LAD and reverse greater saphenous graft from the aorta to the RCA/PDA and from the aorta to the first diagonal and sequential left radial artery graft from the aorta to the 1st obtuse marginal to the 2nd obtuse marginal. The patient states she was told her arteries were quite small. She is now working with [employer] in order to obtain followup, which will likely be in [place]. Currently, the patient denies having any chest pain. In the emergency department, she underwent laboratory studies, which showed a white count of 9.9, hemoglobin 14.1, hematocrit 42.1, platelets 217, neutrophils 84.6%, and lactic acid was elevated at 2.5. Her BUN was 9, creatinine 0.86, GFR 69, potassium 4.1, sodium 139, chloride 105, carbon dioxide 24, and anion gap 14. She had a urinalysis done, that showed light yellow clear urine with 75 leukocytes, greater than 1000 glucose, trace blood, 4 to 6 red blood cells, greater than 50 white blood cells, and 3+ bacteria. Urine culture was ordered. The patient was given Tylenol and then 8 mg of morphine for her pain. She was started on antibiotics with ceftriaxone 2 g IV. For her nausea, she was treated with ondansetron and has received 2 L of normal saline IV. No imaging studies have been done. PAST MEDICAL HISTORY: 1. Type 2 diabetes, uncontrolled. 2. Hyperlipidemia. 3. Hypertension. 4. Coronary artery disease. PAST SURGICAL HISTORY: 1. Hysterectomy. 2. x2. 3. CABG x5 in 07/2017. SOCIAL HISTORY: The patient denies any tobacco use, alcohol consumption, or illicit drug use. She lives with her family and is fully independent. FAMILY HISTORY: The patient reports a strong family history of coronary artery disease. ALLERGIES: BACTRIM, PNEUMOCOCCAL VACCINE, AND TRIMETHOPRIM. CURRENT MEDICATIONS: 1. Lisinopril. 2. Glipizide. 3. Metformin. PHYSICAL EXAMINATION: GENERAL: The patient appears unwell, but well developed, and in no significant distress. VITAL SIGNS: Temperature 101, pulse 90, blood pressure 170/88, respirations 18, and O2 saturation 96% on room air. HEENT: Normocephalic and atraumatic. Pupils are equal, round, and reactive to light. Sclerae without icterus. Oropharynx is clear. NECK: Supple without lymphadenopathy. LUNGS: Clear to auscultation bilaterally without any wheezes, rales, or rhonchi. CARDIAC: Regular rate and rhythm. No audible murmurs, rubs, or gallops. ABDOMEN: Soft, obese. Mild discomfort to the right side of her abdomen with palpation and worse towards the right flank. Right CVA tenderness present. EXTREMITIES: No lower leg swelling or edema. The patient reports bilateral calf discomfort, which she attributes to scars from her previous CABG and states those areas are always tender. NEUROLOGIC: Alert and oriented x3. No neuro deficits on exam. SKIN: Warm and dry. INVESTIGATIONS: As mentioned above in HPI. IMPRESSION AND PLAN: Ms. Madera is a very pleasant 53-year-old woman, who is being admitted for management of the following. 1. Urinary tract infection with suspected pyelonephritis. The patient is started on IV antibiotics with Rocephin, which we will continue. We have requested a renal ultrasound to rule out any underlying obstructive uropathy. Continue IV fluids. 2. Uncontrolled type 2 diabetes. The patient states she has been compliant with her medications and is working with her PCP to adjust them further as her glucose is currently uncontrolled. We will hold her home medications and initiate a sliding scale. Monitor renal function. 3. Coronary artery disease. The patient denies any chest pain at present. We will add on a BNP. No evidence of any fluid overload at this present time. We do not have any echocardiogram on file from her previous visit in 07/2017 when she underwent the coronary artery bypass graft. However, she did have a stress test done, that had demonstrated an ejection fraction of 65% at that time. 4. Hypertension. Monitor blood pressure. Hold nephrotoxic agents. P.r.n. clonidine ordered. 5. Gastrointestinal prophylaxis. Famotidine 20 mg IV b.i.d. 6. Deep venous thrombosis prophylaxis. Mechanical sequential compression devices. 7. Code status, full. Surrogate decision maker is Lakshmi Norman. The patient's case discussed with attending, who agrees with plan of care as described above. Job ID: [id number]
[2019-01-14] MEDS ORDERED: Nitroglycerin 0.4 MG TAB (25 Tab Bottle) SL PRN (15:55)
[2019-01-14] MEDS: Atorvastatin Calcium 20 MG TAB PO SCH (20:34)
[2019-01-14] MEDS ORDERED: Famotidine/PF 20 mg/2ml Vial SLOW IVP SCH (21:00)
[2019-01-15] MEDS: Acetaminophen 325 MG TAB PO PRN ×2 (00:23→12:35)
[2019-01-15 05:42] LABS: #Lymphocytes 2.3 thou/uL (1.20-3.40); #Monocytes 0.7 thou/uL (0.11-0.59); #Neutrophils 4.7 thou/uL (1.40-6.50); %Basophils 0.1 % (0.0-1.0); %Eosinophils 0.6 % (0.0-10.0); %Lymphocytes 29.6 % (21.0-51.0); %Monocytes 9.1 % (0.0-10.0); %Neutrophils 60.6 % (42.0-75.0); Hemoglobin 11.3 g/dL (12.0-16.0); Mean Corpuscular HGB CONC 33.4 g/dL (32.0-36.0); Mean Corpuscular Hemoglobin 28.8 pg (27.0-31.0); Mean Corpuscular Volume 86.2 fL (78.0-98.0); Mean Platelet Volume 8.7 fL (7.4-10.4); Platelet Count 173 thou/uL (130-400); RBC Distribution Width 11.9 % (11.5-14.5); Red Blood Cell (RBC) Count 3.93 mill/uL (4.20-5.40); White Blood Cell (WBC) Count 7.7 thou/uL (4.8-10.8)
[2019-01-15 06:03] LABS: Anion Gap 10 mmol/L (10-20); BUN (Urea Nitrogen) 7 mg/dL (9.8-20.1); Calc. Creatinine Clearance 131 mL/min (70-130); Calcium 8.2 mg/dL (7.8-10.44); Carbon Dioxide 26 mmol/L (22-29); Chloride 103 mmol/L (98-107); Estimated GFR-MDRD 82; Glucose 209 mg/dL (70-105); Potassium 3.6 mmol/L (3.5-5.1); Sodium 135 mmol/L (136-145)
[2019-01-15] MEDS: Hydrochlorothiazide 25 MG TAB PO SCH (08:37)
[2019-01-15] MEDS: Aspirin 325 mg Enteric Coated Tablet PO SCH (08:37)
[2019-01-15] MEDS: FLUoxetine HCl 20 MG CAP PO SCH (08:37)
[2019-01-15] MEDS ORDERED: FLU VACC QS2019-20(6MOS UP)/PF 60 MCG/0.5 ML SYRINGE IM ONE (09:00)
[2019-01-15] MEDS ORDERED: Aspirin 81 mg Enteric Coated Tablet PO SCH (09:00)
[2019-01-15] MEDS: cefTRIAXone\\ROCEPHIN 2 GM in Sodium Chloride 0.9% 100 ML IVPB SCH (12:34)
--- NOTE | 2019-01-15 14:06 | PDOC.HOSPP ---
- Subjective Encounter Date: 01/15/19 Encounter Time: 08:20 Subjective: Pt seen for followup re: pyelonephritis. Feels better. - Objective Vital Signs & Weight: Vital Signs (12 hours) Temp Pulse Resp BP BP Pulse Ox 01/15/19 08:20 97 01/15/19 07:49 100.2 F H 83 16 119/71 97 01/15/19 04:19 98.3 F 72 20 115/57 L 92 L Weight Weight 207 lb 5 oz I&O: 01/14/19 01/15/19 01/16/19 06:59 06:59 06:59 Intake Total 1483 Balance 1483 Result Diagrams: 01/15/19 05:12 01/15/19 05:12 Additional Labs: Accuchecks 01/15/19 01/15/19 01/14/19 11:32 04:21 19:22 POC Glucose 175 H 155 H 222 H 01/14/19 16:18 POC Glucose 85 labs and MARs reviewed by la Hospitalist ROS - Review of Systems Cardiovascular: denies: chest pain, palpitations, orthopnea, paroxysmal noc. dyspnea, edema, light headedness Gastrointestinal: denies: nausea, vomiting, abdominal pain, diarrhea, constipation, melena, hematochezia - Medication Medications: Active Medications Generic Name Dose Route Start Last Admin Trade Name Ricardoq PRN Reason Stop Dose Admin Acetaminophen 650 mg 01/14/19 13:05 01/15/19 12:35 Tylenol PO 650 mg Q4H PRN Administration Headache/Fever/Mild Pain (1-3) Aspirin 325 mg 01/15/19 09:00 01/15/19 08:37 Ecotrin PO 325 mg DAILY RADHA Administration Atorvastatin Calcium 20 mg 01/14/19 21:00 01/14/19 20:34 Lipitor PO 20 mg HS RADHA Administration Fluoxetine HCl 20 mg 01/15/19 09:00 01/15/19 08:37 Prozac PO 20 mg DAILY RADHA Administration Hydrochlorothiazide 12.5 mg 01/15/19 09:00 01/15/19 08:37 Hydrochlorothiazide PO 12.5 mg DAILY RADHA Administration Ceftriaxone Sodium 2 gm/ 100 mls @ 200 mls/hr 01/15/19 12:00 01/15/19 12:34 Sodium Chloride IVPB 100 mls Q24HR RADHA Administration Metoprolol Succinate 25 mg 01/15/19 09:00 01/15/19 08:37 Toprol Xl PO 25 mg DAILY RADHA Administration Pantoprazole Sodium 40 mg 01/15/19 09:00 01/15/19 08:37 Protonix PO 40 mg DAILY RADHA Administration - Exam General - other findings: Obese Eye: anicteric sclera ENT: moist mucosa Neck: supple Heart: RRR Respiratory: CTAB, no rales Gastrointestinal: soft, non-tender Skin: no lesions Psychiatric: normal affect, normal behavior Hosp A/P (1) Pyelonephritis Code(s): N12 - TUBULO-INTERSTITIAL NEPHRITIS, NOT SPCF ACUTE OR CHRONIC Status: Acute (2) CAD (coronary artery disease) Code(s): I25.10 - ATHSCL HEART DISEASE OF [place] CORONARY ARTERY W/O ANG PCTRS Status: Chronic (3) Diabetes mellitus Code(s): E11.9 - TYPE 2 DIABETES MELLITUS WITHOUT COMPLICATIONS Status: Chronic (4) HTN (hypertension) Code(s): I10 - ESSENTIAL (PRIMARY) HYPERTENSION Status: Chronic - Plan plan discussed w/ family, continue antibiotics, out of bed/ambulate HTN controlled. Continue ceftriaxone, follow urine culture (presumptive E. coli). Continue accuchecks, insulin sliding scale. CAD stable.
[2019-01-15] MEDS: Atorvastatin Calcium 20 MG TAB PO SCH (20:04)
[2019-01-16] MEDS: Hydrochlorothiazide 25 MG TAB PO SCH (09:05)
[2019-01-16] MEDS: Aspirin 325 mg Enteric Coated Tablet PO SCH (09:05)
[2019-01-16] MEDS: FLUoxetine HCl 20 MG CAP PO SCH (09:05)
[2019-01-16] MEDS: cefTRIAXone\\ROCEPHIN 2 GM in Sodium Chloride 0.9% 100 ML IVPB SCH (12:44)
[2019-01-16] MEDS: HumaLOG 300 UNITS/3 ML VIAL SC PRN ×2 (14:24→17:09)
--- NOTE | 2019-01-16 15:20 | PDOC.HOSPP ---
- Subjective Encounter Date: 01/16/19 Encounter Time: 08:20 Subjective: Pt seen for followup re: pyelonephritis. Feels well, no complaints. - Objective Vital Signs & Weight: Vital Signs (12 hours) Temp Pulse Resp BP BP Pulse Ox 01/16/19 11:40 98.0 F 66 17 129/76 96 01/16/19 08:30 97.8 F 78 16 149/81 H 97 01/16/19 08:20 97 01/16/19 04:00 98.2 F 75 18 122/70 97 Weight Admit Weight 207 lb 5 oz Weight 207 lb 5 oz I&O: 01/15/19 01/16/19 01/17/19 06:59 06:59 06:59 Intake Total 1483 1100 Balance 1483 1100 Result Diagrams: 01/15/19 05:12 01/15/19 05:12 Additional Labs: Accuchecks 01/16/19 01/16/19 01/15/19 11:45 04:44 19:44 POC Glucose 171 H 157 H 219 H 01/15/19 16:21 POC Glucose 178 H Labs and MARs reviewed by sc Hospitalist ROS - Review of Systems Cardiovascular: denies: chest pain, palpitations, orthopnea, paroxysmal noc. dyspnea, edema, light headedness Gastrointestinal: denies: nausea, vomiting, abdominal pain, diarrhea, constipation, melena, hematochezia - Medication Medications: Active Medications Generic Name Dose Route Start Last Admin Trade Name Freq PRN Reason Stop Dose Admin Acetaminophen 650 mg 01/14/19 13:05 01/15/19 12:35 Tylenol PO 650 mg Q4H PRN Administration Headache/Fever/Mild Pain (1-3) Aspirin 325 mg 01/15/19 09:00 01/16/19 09:05 Ecotrin PO 325 mg DAILY RADHA Administration Atorvastatin Calcium 20 mg 01/14/19 21:00 01/15/19 20:04 Lipitor PO 20 mg HS RADHA Administration Fluoxetine HCl 20 mg 01/15/19 09:00 01/16/19 09:05 Prozac PO 20 mg DAILY RADHA Administration Hydrochlorothiazide 12.5 mg 01/15/19 09:00 01/16/19 09:05 Hydrochlorothiazide PO 12.5 mg DAILY RADHA Administration Insulin Human Lispro 0 units 01/14/19 13:08 01/16/19 14:24 Humalog SC 2 unit .MILD SLIDING SCALE PRN Administration Mild Correctional Scale Metoprolol Succinate 25 mg 01/15/19 09:00 01/16/19 09:06 Toprol Xl PO 25 mg DAILY RADHA Administration Pantoprazole Sodium 40 mg 01/15/19 09:00 01/16/19 09:05 Protonix PO 40 mg DAILY RADHA Administration - Exam General - other findings: Obese Eye: anicteric sclera ENT: moist mucosa Neck: supple Heart: RRR Respiratory: CTAB Gastrointestinal: soft, non-tender Extremities: no cyanosis, no clubbing Neurological: no weakness Psychiatric: normal affect, normal behavior Hosp A/P (1) Pyelonephritis Code(s): N12 - TUBULO-INTERSTITIAL NEPHRITIS, NOT SPCF ACUTE OR CHRONIC Status: Acute (2) CAD (coronary artery disease) Code(s): I25.10 - ATHSCL HEART DISEASE OF [place] CORONARY ARTERY W/O ANG PCTRS Status: Chronic (3) Diabetes mellitus Code(s): E11.9 - TYPE 2 DIABETES MELLITUS WITHOUT COMPLICATIONS Status: Chronic (4) HTN (hypertension) Code(s): I10 - ESSENTIAL (PRIMARY) HYPERTENSION Status: Chronic - Plan HTN controlled. E. coli resistant to ceftriaxone, consult ID. Continue accuchecks, insulin sliding scale. CAD stable.
--- NOTE | 2019-01-16 18:57 | CON ---
DATE OF CONSULTATION: 01/16/2019 REASON FOR CONSULTATION: Urinary tract infection with resistant pathogen. HISTORY OF PRESENT ILLNESS: A 53-year-old who has a history of UTI when was a child, but has not had since until now. She also has a history of previous hysterectomy and is going through her menopause at this time, and about a week ago, developed dysuria and then progressively worsening flank pain and fever, eventually was admitted. She had a urine culture with a resistant E coli. She has received ceftriaxone since admission and she feels improvement. Denies headaches, visual symptoms, sore throat, odynophagia, or dysphagia. No cough or sputum production or chest pain. No abdominal pain, diarrhea, or genitourinary symptoms. Right-sided flank pain. PAST MEDICAL HISTORY: 1. Type-2 diabetes. 2. Obesity. 3. Hyperlipidemia. 4. Hypertension. PAST SURGICAL HISTORY: 1. Hysterectomy. 2. . SOCIAL HISTORY: Never smoker. Does not drink. She is not sexually active. Lives in [place]. ALLERGIES: SULFA DRUGS, PNEUMONIA VACCINE, AND PNEUMOCOCCAL VACCINE. FAMILY HISTORY: Noncontributory. CURRENT MEDICATIONS: 1. Prozac. 2. Glucagon. 3. Hydrochlorothiazide. 4. Insulin. 5. Toprol. 6. Zofran. PHYSICAL EXAMINATION: VITAL SIGNS: T-max 102.2, currently 98.0; blood pressure 140/80; pulse 74; respirations 16. SKIN: Normal. The patient has a peripheral IV access. No Workman catheter. She voids in the toilet. No lymphadenopathy. HEENT: Ocular movements conjugate. Oral cavity normal. NECK: Supple. LUNGS: Symmetric. Clear breath sounds. HEART: S1 and S2, regular rate. No S3 or S4. ABDOMEN: Soft. Not distended or tender. There is mild right-sided flank tenderness. No bladder distention. EXTREMITIES: No joint inflammatory activity. Moves extremities equally. NEUROLOGIC: Cognitive function appears to be intact. LABORATORY DATA: White cell count is 9.9, now 7.7 on arrival; 84% neutrophils and now is normalized to 60. Creatinine is 0.74. Transaminases normal. Albumin 3.9. Lactic acid 2.5 and now 1.0. Urinalysis with greater than 50 wbc's and an E coli with an ESBL phenotype. Renal ultrasound with no obstruction. There are urinary bladder images, which did not show any abnormalities. ASSESSMENT AND PLAN: Extended spectrum beta-lactamases Escherichia coli urinary tract infection with possible and likely pyelonephritis with fever and flank pain. PICC line placement and Invanz for another 7 to 10 days in the outpatient setting downstairs in the oncology unit. After that, if she has recurrences, then she probably will merit either low-dose antimicrobial therapy, suppressive therapy, or D-Mannose. Job ID: [id number]
[2019-01-16] MEDS: Atorvastatin Calcium 20 MG TAB PO SCH (21:04)
[2019-01-16] MEDS: MEROPENEM 1 GM/50 ML 1 GM in Premix Bag 1 BAG IVPB SCH (21:05)
[2019-01-17] MEDS: MEROPENEM 1 GM/50 ML 1 GM in Premix Bag 1 BAG IVPB SCH ×2 (05:36→13:10)
[2019-01-17 07:31] LABS: Prothrombin Time 13.4 SEC (12.0-14.7)
[2019-01-17 07:53] VITALS: TEMP 97.8
[2019-01-17] MEDS: Aspirin 325 mg Enteric Coated Tablet PO SCH (08:44)
[2019-01-17] MEDS: FLUoxetine HCl 20 MG CAP PO SCH (08:45)
[2019-01-17] MEDS: Hydrochlorothiazide 25 MG TAB PO SCH (08:45)
[2019-01-17] MEDS ORDERED: Bisacodyl 5 MG TAB PO PRN (11:57)
[2019-01-17] MEDS ORDERED: Bisacodyl 5 MG TAB PO SCH (12:00)
[2019-01-17] MEDS: HumaLOG 300 UNITS/3 ML VIAL SC PRN ×2 (12:23→16:26)
--- NOTE | 2019-01-17 14:56 | SPC ---
Ultrasound-guidedleftupper extremity PICC placement: 01/17/2019 HISTORY: Pyelonephritis, IV antibiotics FINDINGS: Informed consent obtained prior to the procedure. Left antecubital fossa prepped and draped in normal sterile fashion. Skin overlying theleft basilicvein anesthetized with 1% buffered lidocaine. With direct sonographic g uidance, vascular access is obtained via the left basilicvein and an 0.018in wire was advanced to the IVC, subsequently retracted to the cavoatrial junction. Intravascular length is calculated at 42 cm and of the PICC is cut accordingly. Needle is removed and replaced with a peel-away sheath. The PICC was advanced over the wire. Wire and peel-away sheath were removed. The tip of the catheter overlies the cavoatrial junction. The port flushes well and the catheter is ready for use. Exposure data: 0.1 minutes of fluoroscopic time 2425 mGy per centimeter squared IMPRESSION: Successful ultrasound guided placement of a leftupper extremity PICC.
--- NOTE | 2019-01-17 16:07 | DIS ---
DATE OF ADMISSION: 01/14/2019 DATE OF DISCHARGE: 01/17/2019 PRIMARY CARE PROVIDER: [facility]. DISCHARGE DIAGNOSES: 1. Acute pyelonephritis. 2. Multidrug-resistant Escherichia coli urinary tract infection. CONDITION OF PATIENT ON THE DAY OF DISCHARGE: Stable. I assessed Ms. Madera on the day of discharge. She denies any chest pain or shortness of breath. Vital signs are stable. S1 and S2 are heard, regular. Lungs are clear to auscultation bilaterally. CONSULTATIONS DURING THIS HOSPITALIZATION: Infectious Diseases, Dr. Izaguirre. POST-DISCHARGE FOLLOW-UP: The patient is advised to follow up with primary care provider in 3 to 5 days time. DISCHARGE MEDICATIONS: 1. Invanz 1 g intravenously daily through [facility] until January 26, 2019. 2. Fluoxetine 20 mg daily. 3. Glimepiride 10 mg 2 times a day. 4. Hydrochlorothiazide 12.5 mg daily. 5. Lisinopril 10 mg 2 times a day. 6. Omeprazole 20 mg daily. 7. Aspirin 325 mg daily. 8. Lipitor 20 mg at bedtime. 9. Metformin 1000 mg 2 times a day. 10. Toprol-XL 25 mg daily. 11. Nitroglycerin p.r.n. HOSPITAL COURSE: Ms. Madera is a pleasant 53-year-old lady, who was admitted to [facility] for acute pyelonephritis on January 14, 2019. Please refer to Ms. Jung's history and physical note dated January 14, 2019, for further details. She was treated with ceftriaxone initially. Urine cultures grew Escherichia coli that was sensitive to amikacin, cefoxitin, gentamicin, meropenem, nitrofurantoin, and Zosyn, resistant to ampicillin, cefepime, ceftazidime, ceftriaxone, ciprofloxacin, levofloxacin, tobramycin, and Bactrim. She was seen by Infectious Disease Service. Her antibiotics were switched to meropenem. She had PICC line placed. Arrangements are being made for outpatient treatment with Invanz. If the patient has recurrence, she will probably merit either low-dose antimicrobial therapy, suppressive therapy, or D-mannose. Many thanks for allowing me to participate in your patient's care. Please feel free to contact me with any questions or concerns. Diet: Diabetic and cardiac. Activity: No restrictions. DISCHARGE DESTINATION: Home. TIME SPENT: Total amount of time spent coordinating this discharge: 32 minutes. Job ID: [id number]
[2019-01-17 16:44] VITALS: BP 129/83
--- NOTE | 2019-01-19 05:15 | PQF ---
Lu Madera DAVID [id number] CLINICAL DOCUMENTATION CLARIFICATION FORM: POST DISCHARGE Addendum to original discharge summary date: ____ Late entry note date: __ DATE: 01/19/19 ATTN: Mehrdad Arroyo Please exercise your independent, professional judgment in responding to the clarification form. Clinical indicators are provided on the bottom of this form for your review Please check appropriate box(s) to clarify if the following diagnosis has been ruled in or ruled out: Sepsis [ ] Ruled in diagnosis [ ] Continue to treat [ ] Resolved [ x ] Ruled out diagnosis [ ] Cannot rule out diagnosis [ ] Other diagnosis [ ] Unable to determine In addition, please specify: Present on Admission (POA): [ ] Yes [ ] No [ ] Unable to determine For continuity of documentation, please document condition throughout progress notes and discharge summary. Thank You. CLINICAL INDICATORS - SIGNS / SYMPTOMS / LABS ED note p1 buring with urination and right flank pain starting tuesday ED note p2 Primary diagnosis: Pyelonephritis- acute, Sepsis H&P p1 01/14 She states she has been experiencing a throbbing pain, that gets as an 8/10 in severity H&P p2 01/14 Lactic Acid elevated at 2.5 RISK FACTORS H&P p3 01/14 UTI with suspected Pyelonephritis H&P p3 01/14 Uncontrolled DM TREATMENTS MAY 15 IV Ceftriaxone MAY 15 2L normal Saline IV Lu Madera DAVID [id number] CLINICAL DOCUMENTATION CLARIFICATION FORM: POST DISCHARGE Addendum to original discharge summary date: ____ Late entry note date: __ DATE: 01/19/19 ATTN: Mehrdad Arroyo Please exercise your independent, professional judgment in responding to the clarification form. Clinical indicators are provided on the bottom of this form for your review Please check appropriate box(s) to clarify if the following diagnosis has been ruled in or ruled out: Sepsis [ ] Ruled in diagnosis [ ] Continue to treat [ ] Resolved [ ] Ruled out diagnosis [ ] Cannot rule out diagnosis [ ] Other diagnosis [ ] Unable to determine In addition, please specify: Present on Admission (POA): [ ] Yes [ ] No [ ] Unable to determine For continuity of documentation, please document condition throughout progress notes and discharge summary. Thank You. CLINICAL INDICATORS - SIGNS / SYMPTOMS / LABS ED note p1 burning with urination and right flank pain starting tuesday ED note p2 Primary diagnosis: Pyelonephritis- acute, Sepsis H&P p1 01/14 She states she has been experiencing a throbbing pain, that gets as an 8/10 in severity H&P p2 01/14 Lactic Acid elevated at 2.5 RISK FACTORS H&P p3 01/14 UTI with suspected Pyelonephritis H&P p3 01/14 Uncontrolled DM TREATMENTS MAY 15 IV Ceftriaxone MAY 15 2L normal Saline IV MTDD
== END 2019-01-17 17:58 | disposition home or self-care (01) | DRG 690 ==
LOC: ERS 09:24 → T4-B 12:05
PROVIDERS: ADMIT Internal Medicine; ATTEND Internal Medicine
PROC: 02HV33Z Insertion of Infusion Device into Superior Vena Cava, Percutaneous Approach (ICD-10-PCS; principal; 2019-01-17)
PROC: B548ZZA Ultrasonography of Superior Vena Cava, Guidance (ICD-10-PCS; 2019-01-17)
DX: N10 Acute pyelonephritis (principal); Z16.24 Resistance to multiple antibiotics; B96.20 Unspecified Escherichia coli [E. coli] as the cause of diseases classified elsewhere; I25.10 Atherosclerotic heart disease of native coronary artery without angina pectoris; E78.5 Hyperlipidemia, unspecified; I10 Essential (primary) hypertension; E11.65 Type 2 diabetes mellitus with hyperglycemia; E66.9 Obesity, unspecified; Z88.1 Allergy status to other antibiotic agents; Z88.2 Allergy status to sulfonamides; Z88.7 Allergy status to serum and vaccine; Z88.8 Allergy status to other drugs, medicaments and biological substances; Z95.1 Presence of aortocoronary bypass graft; Z28.21 Immunization not carried out because of patient refusal; Z68.35 Body mass index [BMI] 35.0-35.9, adult; Z90.710 Acquired absence of both cervix and uterus; Z79.84 Long term (current) use of oral hypoglycemic drugs
CPT/HCPCS: 36415; 36416; 36569; 76770; 80048; 80053; 81003; 81015; 83036; 83605; 83735; 83880; 85025; 85610; 87040; 87077; 87086; 87186; 96361; 96365; 96375; C1751; J0696; J1885; J2185; J2270; J2405; J3490

== ENCOUNTER 2019-02-12 11:13 | Emergency (ER) | payer SELFPAY ==
--- NOTE | 2019-02-12 12:24 | RAD ---
Left hand 3 views HISTORY: Left hand injury. FINDINGS: Joint spaces are preserved. No acute fracture, dislocation, or aggressive osseous erosions. Ulnar negative variant is noted. Interspaces clips at the volar soft tissues of the distal forearm. IMPRESSION: No acute osseous abnormalities are demonstrated.
== END 2019-02-12 13:05 | disposition home or self-care (01) ==
LOC: ERS 11:13
DX: S60.222A Contusion of left hand, initial encounter (principal); E78.5 Hyperlipidemia, unspecified; E78.00 Pure hypercholesterolemia, unspecified; E11.9 Type 2 diabetes mellitus without complications; W20.8XXA Other cause of strike by thrown, projected or falling object, initial encounter

== ENCOUNTER 2023-09-13 22:11 | Inpatient (IN) | payer OTHER ==
[2023-09-13 23:06] LABS: Influenza A by NAA Not Detected (NotDetected); Influenza B by NAA Not Detected (NotDetected); SARS-CoV-2 NAA Rapid Test Not Detected (NotDetected)
[2023-09-14 00:25] LABS: #Basophils 0.03 10x3/uL (0.0-0.2); #Eosinphils Less than 0.03 10x3/uL (0.0-0.7); %Basophils 0.3 % (0.0-1.0); %Monocytes 4.2 % (0.0-10.0); %Neutrophils 82.3 % (42.0-75.0); Hematocrit 41.1 % (36.0-47.0); Hemoglobin 13.4 g/dL (12.0-16.0); Mean Corpuscular HGB CONC 32.6 g/dL (32.0-36.0); Mean Corpuscular Hemoglobin 26.3 pg (27.0-31.0); Mean Corpuscular Volume 80.7 fL (78.0-98.0); Mean Platelet Volume 11.3 fL (7.4-10.4); Platelet Count 237 10x3/uL (130-400); RBC Distribution Width 14.2 % (11.5-14.5); Red Blood Cell (RBC) Count 5.09 mill/uL (4.20-5.40)
[2023-09-14 00:42] LABS: ALT (SGPT) 41 U/L (8-55); AST (SGOT) 57 U/L (5-34); Albumin 3.3 g/dL (3.5-5.0); Alkaline Phosphatase 64 U/L (40-110); Anion Gap 15 mmol/L (10-20); BUN (Urea Nitrogen) 13 mg/dL (9.8-20.1); Bilirubin, Total 1.5 mg/dL (0.2-1.2); Calc. Creatinine Clearance 0 mL/min (70-130); Calcium 8.9 mg/dL (7.8-10.44); Carbon Dioxide 17 mmol/L (22-29); Chloride 106 mmol/L (98-107); Estimated GFR 94; Globulin 3.9 g/dL (2.4-3.5); Glucose 190 mg/dL (70-105); Magnesium 1.5 mg/dL (1.6-2.6); Potassium 3.4 mmol/L (3.5-5.1); Protein, Total 7.2 g/dL (6.0-8.3); Sodium 135 mmol/L (136-145)
[2023-09-14 00:47] LABS: Troponin I Less than 0.010 ng/mL (< 0.028)
[2023-09-14] MEDS ORDERED: Magnesium 2 GM/50 ML BAG (IN WATER) ONE (03:08)
[2023-09-14] MEDS ORDERED: Potassium Chloride 20 MEQ TAB ONE (03:08)
[2023-09-14] MEDS ORDERED: Ondansetron PF 4 MG/2 ML Vial ONE ×2 (03:21→08:31)
[2023-09-14] MEDS ORDERED: Acetaminophen 650 MG Suppository PR PRN (06:16)
[2023-09-14] MEDS ORDERED: Acetaminophen 325 MG TAB PO PRN (06:16)
[2023-09-14] MEDS ORDERED: Ondansetron ODT 4 MG TAB PO PRN (06:16)
[2023-09-14] MEDS ORDERED: Dextrose 5% in Water 1,000 ML IV PRN (07:56)
[2023-09-14] MEDS ORDERED: HumaLOG 300 UNITS/3 ML VIAL SC PRN (07:56)
[2023-09-14] MEDS ORDERED: Dextrose 50% Abboject 50 ML SYRINGE SLOW IVP PRN (07:56)
[2023-09-14] MEDS ORDERED: Glucagon 1 MG/ML KIT IM PRN (07:56)
[2023-09-14] MEDS ORDERED: Lisinopril 20 MG TAB ONE (08:17)
[2023-09-14] MEDS ORDERED: Aspirin 325 MG TAB ONE (08:18)
[2023-09-14] MEDS ORDERED: Lactulose 20 GM (30 mL) UDCUP ONE (08:18)
[2023-09-14] MEDS: Ondansetron PF 4 MG/2 ML Vial IVP PRN (08:35)
[2023-09-14] MEDS: Lisinopril 20 MG TAB PO SCH (08:35)
[2023-09-14] MEDS: Lactulose 20 GM (30 mL) UDCUP PO SCH (08:36)
[2023-09-14] MEDS ORDERED: Iopamidol-370 76% 500 ML MDV (1 ML CHARGE) ONE (08:54)
[2023-09-14] MEDS ORDERED: Lisinopril 2.5 MG TAB PO SCH (09:00)
[2023-09-14] MEDS ORDERED: FLUoxetine HCl 10 MG CAP PO SCH (09:00)
[2023-09-14] MEDS ORDERED: Non-Formulary Item 1 EACH (Omeprazole [Omeprazole] 20 MG Capsule.Dr) PO SCH (09:00)
[2023-09-14] MEDS ORDERED: Pantoprazole DR 40 MG TAB ONE (09:24)
[2023-09-14] MEDS: Pantoprazole DR 40 MG TAB PO SCH (09:28)
[2023-09-14] MEDS: Aspirin 325 mg Enteric Coated Tablet PO SCH (09:29)
[2023-09-14] MEDS: FLUoxetine HCl 20 MG CAP PO SCH (09:29)
[2023-09-14 10:19] LABS: Phosphorus 3.2 mg/dL (2.3-4.7)
[2023-09-14 10:25] LABS: Troponin I Less than 0.010 ng/mL (< 0.028)
[2023-09-14] MEDS ORDERED: Metoclopramide HCl 10 MG (2 mL) VIAL ONE (11:26)
[2023-09-14] MEDS: Metoclopramide HCl 10 MG (2 mL) VIAL IVP PRN (11:32)
[2023-09-14 15:41] VITALS: BMI 33.5
[2023-09-14] MEDS: Insulin Lispro 100 UNIT/ML 10 ML VIAL SC PRN (17:56)
[2023-09-14] MEDS ORDERED: Atorvastatin Calcium 20 MG TAB PO SCH (21:00)
[2023-09-14] MEDS: Atorvastatin Calcium 40 MG TAB PO SCH (21:24)
[2023-09-15 04:53] LABS: #Basophils 0.03 10x3/uL (0.0-0.2); #Eosinphils Less than 0.03 10x3/uL (0.0-0.7); %Basophils 0.3 % (0.0-1.0); %Lymphocytes 15.5 % (21.0-51.0); %Monocytes 5.7 % (0.0-10.0); %Neutrophils 78.2 % (42.0-75.0); Hematocrit 46.2 % (36.0-47.0); Mean Corpuscular HGB CONC 32.5 g/dL (32.0-36.0); Mean Corpuscular Hemoglobin 25.9 pg (27.0-31.0); Mean Corpuscular Volume 79.8 fL (78.0-98.0); Mean Platelet Volume 11.6 fL (7.4-10.4); Platelet Count 291 10x3/uL (130-400); RBC Distribution Width 14.6 % (11.5-14.5); Red Blood Cell (RBC) Count 5.79 mill/uL (4.20-5.40)
[2023-09-15 05:09] LABS: ALT (SGPT) 45 U/L (8-55); AST (SGOT) 75 U/L (5-34); Albumin 3.4 g/dL (3.5-5.0); Alkaline Phosphatase 66 U/L (40-110); Anion Gap 14 mmol/L (10-20); BUN (Urea Nitrogen) 17 mg/dL (9.8-20.1); Bilirubin, Total 1.8 mg/dL (0.2-1.2); Calc. Creatinine Clearance 104 mL/min (70-130); Calcium 9.1 mg/dL (7.8-10.44); Carbon Dioxide 21 mmol/L (22-29); Chloride 102 mmol/L (98-107); Estimated GFR 83; Globulin 4.4 g/dL (2.4-3.5); Glucose 212 mg/dL (70-105); Potassium 3.4 mmol/L (3.5-5.1); Protein, Total 7.8 g/dL (6.0-8.3); Sodium 134 mmol/L (136-145)
[2023-09-15] MEDS ORDERED: ADENOSINE 60 MG/20 ML SDV ONE (09:43)
[2023-09-15] MEDS ORDERED: Iopamidol-370 76% 500 ML MDV (1 ML CHARGE) ONE (11:13)
[2023-09-15 11:26] VITALS: BMI 33.5
[2023-09-15] MEDS ORDERED: Insulin Lispro 100 UNIT/ML 10 ML VIAL SC PRN (12:52)
[2023-09-15] MEDS ORDERED: Potassium Chloride 20 MEQ in Lactated Ringer's 1,000 ML IV SCH (17:30)
[2023-09-15] MEDS: cefTRIAXone\\ROCEPHIN 2 GM in Sodium Chloride 0.9% 100 ML IVPB SCH (21:02)
[2023-09-15] MEDS: NS 0.9% w/ 20 MEQ KCL 1,000 ML/1,000 ML BAG IV SCH (21:03)
[2023-09-15] MEDS: Multivit, Therapeutic 1 TAB PO SCH (21:03)
[2023-09-15] MEDS: Saccharomyces boulardii 250 MG CAP PO SCH (21:04)
[2023-09-15] MEDS: Insulin Lispro 100 UNIT/ML 10 ML VIAL SC PRN (21:33)
[2023-09-15] MEDS: metroNIDAZOLE 500 MG in Premix 1 BAG IVPB SCH (21:37)
[2023-09-16 00:43] LABS: Bacteria/HPF None Seen HPF (None Seen); Bilirubin Negative (Negative); Blood, Urine Negative (Negative); Clarity Clear (Clear); Glucose, Urine (Dipstick) 200 mg/dL (Negative); Ketone, Urine Negative (Negative); Leukocyte Negative Leu/uL (Negative); Nitrite Negative (Negative); Protein, Urine (Dipstick) 50 mg/dL (Neg-Trace); Squamous Epithelial 0-3 HPF (0-3); Urobilinogen Normal mg/dL (Less than 2); WBC/HPF 0-3 HPF (0-3)
[2023-09-16 03:51] LABS: #Basophils Less than 0.03 10x3/uL (0.0-0.2); #Eosinphils Less than 0.03 10x3/uL (0.0-0.7); %Basophils 0.3 % (0.0-1.0); %Eosinophils 0.1 % (0.0-10.0); %Lymphocytes 30.7 % (21.0-51.0); %Monocytes 12.6 % (0.0-10.0); %Neutrophils 56.2 % (42.0-75.0); Hematocrit 41.3 % (36.0-47.0); Hemoglobin 13.7 g/dL (12.0-16.0); Mean Corpuscular HGB CONC 33.2 g/dL (32.0-36.0); Mean Corpuscular Volume 78.5 fL (78.0-98.0); Platelet Count 248 10x3/uL (130-400); RBC Distribution Width 14.5 % (11.5-14.5); Red Blood Cell (RBC) Count 5.26 mill/uL (4.20-5.40)
[2023-09-16 04:12] LABS: ALT (SGPT) 34 U/L (8-55); AST (SGOT) 39 U/L (5-34); Alkaline Phosphatase 52 U/L (40-110); Anion Gap 15 mmol/L (10-20); BUN (Urea Nitrogen) 19 mg/dL (9.8-20.1); Bilirubin, Total 1.3 mg/dL (0.2-1.2); Calc. Creatinine Clearance 122 mL/min (70-130); Calcium 8.6 mg/dL (7.8-10.44); Carbon Dioxide 18 mmol/L (22-29); Chloride 103 mmol/L (98-107); Estimated GFR 100; Glucose 207 mg/dL (70-105); Lipase 33 U/L (8-78); Potassium 3.2 mmol/L (3.5-5.1); Sodium 133 mmol/L (136-145)
[2023-09-16 04:31] VITALS: TEMP 97.6
[2023-09-16] MEDS: Insulin Lispro 100 UNIT/ML 10 ML VIAL SC PRN (05:50)
[2023-09-16] MEDS: K-Phos Neutral 250 MG TAB PO SCH (09:27)
[2023-09-16 11:39] VITALS: BP 131/63
[2023-09-16 15:29] LABS: Campy jejuni + coli by PCR Negative (Negative); STEC Shiga Toxin 1+2 Negative (Negative); Salmonella spp. by PCR Negative (Negative); Shigella spp + EIEC by PCR Negative (Negative)
== END 2023-09-16 15:20 | disposition home or self-care (01) | DRG 313 ==
LOC: ERS 22:11 → ERHOLD 09-14 04:48 → 2SW 09-14 15:33 → OBSVTOIN 09-15 17:20
PROVIDERS: ADMIT Family Medicine; ATTEND Internal Medicine
DX: R07.89 Other chest pain (principal); E87.1 Hypo-osmolality and hyponatremia; R11.2 Nausea with vomiting, unspecified; E87.6 Hypokalemia; K21.9 Gastro-esophageal reflux disease without esophagitis; E66.9 Obesity, unspecified; Z68.33 Body mass index [BMI] 33.0-33.9, adult; E78.5 Hyperlipidemia, unspecified; Z79.82 Long term (current) use of aspirin; Z79.899 Other long term (current) drug therapy; Z95.1 Presence of aortocoronary bypass graft; I25.10 Atherosclerotic heart disease of native coronary artery without angina pectoris; E11.9 Type 2 diabetes mellitus without complications
CPT/HCPCS: 36415; 36416; 71045; 71275; 74177; 76705; 78452; 80053; 81001; 83630; 83690; 83735; 83880; 84100; 84484; 85025; 87040; 87324; 87328; 87329; 87449; 87505; 93005; 93017; 93306; 94760; 96374; 96375; 96376; A9502; G0378; J0153; J0696; J1815; J2405; J2765; J3475; J3480; J3490; Q9967

== ENCOUNTER 2023-09-27 17:15 | Emergency (ER) | payer OTHER ==
[~2023-09-27 17:15] MED LIST: Iopamidol-370 76% 500 ML MDV (1 ML CHARGE) ONE
[2023-09-27 18:54] LABS: #Basophils 0.04 10x3/uL (0.0-0.2); %Basophils 0.4 % (0.0-1.0); %Eosinophils 0.9 % (0.0-10.0); %Lymphocytes 31.9 % (21.0-51.0); %Monocytes 7.7 % (0.0-10.0); %Neutrophils 58.9 % (42.0-75.0); Hematocrit 39.9 % (36.0-47.0); Hemoglobin 12.7 g/dL (12.0-16.0); Mean Corpuscular HGB CONC 31.8 g/dL (32.0-36.0); Mean Corpuscular Hemoglobin 26.2 pg (27.0-31.0); Mean Corpuscular Volume 82.4 fL (78.0-98.0); Mean Platelet Volume 10.9 fL (7.4-10.4); Platelet Count 281 10x3/uL (130-400); RBC Distribution Width 14.6 % (11.5-14.5); Red Blood Cell (RBC) Count 4.84 mill/uL (4.20-5.40)
[2023-09-27 19:09] LABS: ALT (SGPT) 45 U/L (8-55); AST (SGOT) 48 U/L (5-34); Albumin 3.2 g/dL (3.5-5.0); Alkaline Phosphatase 66 U/L (40-110); Anion Gap 10 mmol/L (10-20); BUN (Urea Nitrogen) 7 mg/dL (9.8-20.1); Bilirubin, Total 1.1 mg/dL (0.2-1.2); Calc. Creatinine Clearance 0 mL/min (70-130); Carbon Dioxide 29 mmol/L (22-29); Chloride 106 mmol/L (98-107); Estimated GFR 100; Globulin 3.7 g/dL (2.4-3.5); Glucose 123 mg/dL (70-105); Lipase 21 U/L (8-78); Magnesium 2.1 mg/dL (1.6-2.6); Potassium 2.9 mmol/L (3.5-5.1); Protein, Total 6.9 g/dL (6.0-8.3); Sodium 142 mmol/L (136-145)
[2023-09-27 19:14] LABS: Troponin I Less than 0.010 ng/mL (< 0.028)
[2023-09-27] MEDS ORDERED: Lidocaine 2% Viscous 10 mL, Alum & Magn 30 mL SSW SCH (19:45)
[2023-09-27] MEDS ORDERED: Ondansetron PF 4 MG/2 ML Vial ONE (20:01)
[2023-09-27 20:48] LABS: Bacteria/HPF None Seen HPF (None Seen); Bilirubin Negative (Negative); Blood, Urine Negative (Negative); CAUTI Indications for Culture Fever or rigors; Clarity Clear (Clear); Glucose, Urine (Dipstick) Normal (Negative); Ketone, Urine Negative (Negative); Leukocyte 250 Leu/uL (Negative); Nitrite Negative (Negative); Protein, Urine (Dipstick) Negative (Neg-Trace); RBC/HPF 0-3 HPF (0-3); Specific Gravity, Urine 1.016 (1.002-1.036); Urobilinogen Normal mg/dL (Less than 2); WBC/HPF 21-50 HPF (0-3)
[2023-09-27] MEDS ORDERED: Pantoprazole 40 MG VIAL ONE (20:49)
[2023-09-27] MEDS ORDERED: Metoclopramide HCl 10 MG (2 mL) VIAL ONE (20:49)
[2023-09-27] MEDS ORDERED: Potassium Chloride 20 MEQ (100 mL) BAG ONE (20:50)
[2023-09-27 20:51] LABS: Urine Culture Reflex Yes Yes
[2023-09-28 01:46] LABS: Anion Gap 13 mmol/L (10-20); BUN (Urea Nitrogen) 7 mg/dL (9.8-20.1); Calc. Creatinine Clearance 0 mL/min (70-130); Calcium 8.6 mg/dL (7.8-10.44); Carbon Dioxide 23 mmol/L (22-29); Chloride 109 mmol/L (98-107); Estimated GFR 103; Glucose 116 mg/dL (70-105); Potassium 3.2 mmol/L (3.5-5.1); Sodium 142 mmol/L (136-145)
== END 2023-09-28 04:22 | disposition home or self-care (01) ==
LOC: ERS 17:15
DX: E87.6 Hypokalemia (principal); R11.2 Nausea with vomiting, unspecified; E11.9 Type 2 diabetes mellitus without complications; I10 Essential (primary) hypertension
CPT/HCPCS: 36415; 74177; 80048; 80053; 81001; 83690; 83735; 84484; 85025; 87086; 93005; 96374; 96375; J2405; J2765; J3480; Q9967